=== PATIENT | male | born 1935 | race Two or more races ===

== ENCOUNTER 2016-08-14 14:49 | Emergency (ER) | payer MEDICARE, MEDICAID ==
[~2016-08-14] VITALS: Ht 172.7 cm; Wt 59.0 kg
[~2016-08-14 14:49] MED LIST: ALPR0.5T; ASPI-605; CLOP75TA2; HYDR1TAB; METO-304; PREG75CA; WARF4TAB41
[2016-08-14] MEDS ORDERED: MORPHINE SULFATE INJ 4 MG/ML DISP.SYRIN ONE (15:35)
[2016-08-14] MEDS ORDERED: MORPHINE SULFATE INJ 2 MG/ML DISP.SYRIN IM ONE (16:00)
[2016-08-14 16:17] VITALS: BP 149/81
== END 2016-08-14 16:17 | disposition home or self-care (01) ==
LOC: ER 14:50
DX: M25.551 Pain in right hip (principal); M25.562 Pain in left knee; F32.9 Major depressive disorder, single episode, unspecified; G89.29 Other chronic pain; K21.9 Gastro-esophageal reflux disease without esophagitis; F41.9 Anxiety disorder, unspecified; I11.9 Hypertensive heart disease without heart failure; Z95.0 Presence of cardiac pacemaker; Z79.82 Long term (current) use of aspirin
CPT/HCPCS: A4606; J2270; Z7610

== ENCOUNTER 2017-04-27 06:45 | Inpatient (IN) | payer MEDICARE, MEDICAID ==
[~2017-04-27 06:45] MED LIST changes: -PREG75CA; +PREG75CA PO
--- NOTE | 2017-04-27 07:20 | NUR ---
MS RN OPENING NOTE PATIENT IS ALERT AND ORIENTED x4. NO PAIN AT THIS TIME. NO SOB OR DISTRESS NOTED. CALL LIGHT WITHIN REACH. SAFETY MEASURES IMPLEMENTED. ABLE TO COMMUNICATE NEEDS. PATIENT ADMITTED FOR MALFUNCTION OF PACEMAKER. DAY SURGERY. ALL VITALS WITHIN NORMAL LIMITS. ALL BELONGINGS AT BEDSIDE. PATIENT HAS UPPER DENTURES AND EYE GLASSES. WILL CONTINUE TO MONITOR
[2017-04-27] MEDS ORDERED: HYDR-3326 PO (07:47)
[2017-04-27] MEDS ORDERED: LEVO50TA8 PO (07:47)
[2017-04-27] MEDS ORDERED: DULO30CA2 PO (07:47)
[2017-04-27] MEDS ORDERED: TRAZ-144 PO (07:47)
[2017-04-27] MEDS ORDERED: CARV6.252 PO (07:47)
[2017-04-27] MEDS ORDERED: OMEP40CA37 PO (07:47)
[2017-04-27] MEDS ORDERED: ASPI81TA2 PO (07:47)
[2017-04-27 08:35] LABS: BASOPHILS % (AUTO) 0.3 % (0.0-2.0); EOSINOPHILS # (AUTO) 0.2 /CMM (0.0-0.7); EOSINOPHILS % (AUTO) 4.1 % (0.0-6.0); HEMATOCRIT 32 % (39-51); LYMPHOCYTES # (AUTO) 1.7 /CMM (0.8-4.8); LYMPHOCYTES % (AUTO) 34.6 % (20.0-44.0); MEAN CORPUSCULAR HEMOGLOBIN 33 PG (26.0-33.0); MEAN CORPUSCULAR HGB CONC 34 g/dl (31.0-36.0); MEAN CORPUSCULAR VOLUME 96 fL (80-96); MONOCYTES # (AUTO) 0.5 /CMM (0.1-1.30); MONOCYTES % (AUTO) 10.8 % (2.0-12.0); NEUTROPHILS # (AUTO) 2.5 /CMM (1.8-8.9); NEUTROPHILS % (AUTO) 50.2 % (43.0-81.0); PLATELET COUNT (AUTO) 154 /CMM (150-450); RDW COEFFICIENT OF VARIATION 14.5 (11.5-15.0); RED BLOOD CELL COUNT(AUTO) 3.35 MIL/uL (4.5-6.0); WHITE BLOOD COUNT (AUTO) 5.1 K/uL (4.3-11.0)
--- NOTE | 2017-04-27 08:45 | NUR ---
MS RN NOTE PATIENT HEADING DOWN TO SURGERY. VITALS ARE STABLE.
[2017-04-27 08:53] LABS: ALANINE AMINOTRANSFERASE 43 U/L (12-78); ALKALINE PHOSPHATASE 98 U/L (46-116); ASPARTATE AMINOTRANSFERASE 44 U/L (15-37); BILIRUBIN,TOTAL 0.3 mg/dL (0.2-1.0); CALCIUM, SERUM 8.6 mg/dL (8.5-10.1); CARBON DIOXIDE 23 mmol/L (21-32); CHLORIDE 112 mmol/L (98-107); CREATININE 1.1 mg/dL (0.6-1.3); GLUCOSE 94 mg/dL (74-106); INR 1.06 (0.87-1.13); POTASSIUM 3.7 mmol/L (3.5-5.1); SODIUM SERUM 143 mmol/L (136-145); TOTAL PROTEIN, SERUM 5.7 g/dL (6.4-8.2); UREA NITROGEN, BLOOD 31 mg/dL (7-18)
--- NOTE | 2017-04-27 11:00 | NUR ---
MS RN NOTE PATIENT IS BACK FROM SURGERY. VITALS ARE STABLE. NO PAIN AT THIS TIME. NO SOB OR DISTRESS NOTED. MD ORDERS RECEIVED ALL ORDERS NOTED AND CARRIED OUT. WILL CONTINUE TO MONITOR
--- NOTE | 2017-04-27 14:10 | NUR ---
MS CATEGORY DEVELOPMENT MANAGER NOTE PATIENT IS ALERT AND ORIENTED x4. NO PAIN AT THIS TIME. NO SOB OR DISTRESS NOTED. CALL LIGHT WITHIN REACH AT ALL TIMES. SAFETY MEASURES IMPLEMENTED. PATIENT HAD ICD CHANGE THIS MORNING. VITALS ARE STABLE. PATIENT IS URINATING WELL WITHOUT COMPLICATIONS. IV REMOVED, SKIN INTACT. ALL BELONGINGS WITH PATIENT, ALL DISCHARGE INSTRUCTIONS GIVEN TO PATIENT, ABLE TO READ BACK INSTRUCTIONS. PATIENT TO FOLLOW UP WITH DR. ALFRED IN 10 DAYS. ASKED PATIENT IF HE WOULD LIKE TO SCHEDULE APPT FOR HIM AND PATIENT STATED "NO ITS OKAY THANK YOU I WILL CALL HIM FOR AN APPT MYSELF". LEFT VIA PRIVATE CAR WITH FRIEND.
== END 2017-04-27 14:15 | disposition home or self-care (01) | DRG 245 ==
LOC: DS 06:45 → MED 06:49
PROVIDERS: ADMIT Internal Medicine Interventional Cardiology; ATTEND Internal Medicine Interventional Cardiology
PROC: 0JH609Z Insertion of Cardiac Resynchronization Defibrillator Pulse Generator into Chest Subcutaneous Tissue and Fascia, Open Approach (ICD-10-PCS; 2017-04-27)
PROC: 0JPT0PZ Removal of Cardiac Rhythm Related Device from Trunk Subcutaneous Tissue and Fascia, Open Approach (ICD-10-PCS; principal; 2017-04-27 09:30)
DX: Z45.018 Encounter for adjustment and management of other part of cardiac pacemaker (principal); I42.9 Cardiomyopathy, unspecified; E03.9 Hypothyroidism, unspecified
CPT/HCPCS: 36415; 71010-TC; 80053-TC; 85025-TC; 85610-TC; J2250; J2704; J3010; J3490; Z7610

== ENCOUNTER 2017-06-07 19:19 | Emergency (ER) | payer MEDICARE, MEDICAID ==
[~2017-06-07] VITALS: Ht 170.2 cm; Wt 59.0 kg
[~2017-06-07 19:19] MED LIST changes: -ALPR0.5T; -ASPI-605; +ASPI81TA2 PO; +CARV6.252 PO; -CLOP75TA2; +DULO30CA2 PO; +HYDR-3326 PO; -HYDR1TAB; +LEVO50TA8 PO; -METO-304; +OMEP40CA37 PO; +TRAZ-144 PO; -WARF4TAB41
--- NOTE | 2017-06-07 19:33 | NUR ---
pt to er bed 09. c/o r shoulder pain w/ sob for a couple of days. pt is refusing to answer questions. rude to staff. insisting on getting iv morphine. stable vitals. awaiting md gomes.
--- NOTE | 2017-06-07 19:52 | NUR ---
dr ruiz at bedside for eval.
[2017-06-07] MEDS ORDERED: HYDROMORPHONE INJ 2 MG/ML DISP.SYRIN ONE (19:55)
[2017-06-07] MEDS ORDERED: HYDROMORPHONE 1 MG/1 ML DISP.SYRIN IM ONE (20:00)
--- NOTE | 2017-06-07 20:01 | NUR ---
medicated as ordered.
--- NOTE | 2017-06-07 20:15 | NUR ---
Patient discharged to home in stable condition. Written and verbal after care instructions given. Patient verbalizes understanding of instruction.
[2017-06-07 20:17] VITALS: BP 115/60
== END 2017-06-07 20:20 | disposition home or self-care (01) ==
LOC: ER 19:20
DX: G89.29 Other chronic pain (principal); M25.512 Pain in left shoulder; I10 Essential (primary) hypertension; Z95.0 Presence of cardiac pacemaker; Z96.641 Presence of right artificial hip joint; Z96.653 Presence of artificial knee joint, bilateral; Z79.82 Long term (current) use of aspirin
CPT/HCPCS: 96372; 99283; A4606; J1170; Z7610

== ENCOUNTER 2018-02-05 14:09 | Inpatient (IN) | payer MEDICARE, MEDICAID ==
[~2018-02-05] VITALS: Ht 167.6 cm; Wt 64.4 kg
[~2018-02-05 14:09] MED LIST changes: +ASPI-1169 PO; -ASPI81TA2 PO; -HYDR-3326 PO; +HYDR-3974 PO; -TRAZ-144 PO; +TRAZ-182 PO
--- NOTE | 2018-02-05 14:30 | NUR ---
PT TO ER BED 17. WAS SENT BY DR ALFRED FOR DORISAL. PRESENTS W/ BILAT LOWER EXTREMITY EDEMA. PT STATES GOING ON X 2 WEEKS. DENIES CP. GOWNED AND PLACED ON MONITOR. VSS. AWAITING MD CARREON.
--- NOTE | 2018-02-05 14:46 | NUR ---
DR Sheppard AT BEDSIDE FOR EVAL.
[2018-02-05 15:06] LABS: BASOPHILS % (AUTO) 0.8 % (0.0-2.0); EOSINOPHILS % (AUTO) 5.8 % (0.0-6.0); HEMATOCRIT 29 % (39-51); HEMOGLOBIN 10.4 g/dL (13.5-17.5); LYMPHOCYTES # (AUTO) 1.3 /CMM (0.8-4.8); LYMPHOCYTES % (AUTO) 26.2 % (20.0-44.0); MEAN CORPUSCULAR HEMOGLOBIN 35 PG (26.0-33.0); MEAN CORPUSCULAR HGB CONC 36 g/dl (31.0-36.0); MEAN CORPUSCULAR VOLUME 100 fL (80-96); MONOCYTES # (AUTO) 0.4 /CMM (0.1-1.30); MONOCYTES % (AUTO) 7.6 % (2.0-12.0); NEUTROPHILS # (AUTO) 3.1 /CMM (1.8-8.9); NEUTROPHILS % (AUTO) 59.6 % (43.0-81.0); PLATELET COUNT (AUTO) 109 /CMM (150-450); RDW COEFFICIENT OF VARIATION 13.8 (11.5-15.0); RED BLOOD CELL COUNT(AUTO) 2.93 MIL/uL (4.5-6.0); WHITE BLOOD COUNT (AUTO) 5.1 K/uL (4.3-11.0)
[2018-02-05 15:16] LABS: CALCIUM, SERUM 8.1 mg/dL (8.5-10.1); CARBON DIOXIDE 24 mmol/L (21-32); CHLORIDE 109 mmol/L (98-107); CREATININE 1.3 mg/dL (0.6-1.3); GLUCOSE 93 mg/dL (74-106); POTASSIUM 3.7 mmol/L (3.5-5.1); SODIUM SERUM 139 mmol/L (136-145); UREA NITROGEN, BLOOD 25 mg/dL (7-18)
[2018-02-05 15:42] LABS: ALANINE AMINOTRANSFERASE 24 U/L (12-78); ALBUMIN 2.5 g/dL (3.4-5.0); ALKALINE PHOSPHATASE 94 U/L (46-116); ASPARTATE AMINOTRANSFERASE 44 U/L (15-37); B-TYPE NATRIURETIC PEPTIDE 921 PG/ML (0-125); BILIRUBIN,DIRECT 0.1 mg/dL (0.0-0.2); BILIRUBIN,TOTAL 0.5 mg/dL (0.2-1.0); TOTAL PROTEIN, SERUM 6.2 g/dL (6.4-8.2)
[2018-02-05 15:44] LABS: TROPONIN I < 0.017 ng/mL (0.00-0.056)
--- NOTE | 2018-02-05 16:08 | NUR ---
U/S TECH AT BEDSIDE FOR DUPLEX ULTRASOUND.
[2018-02-05] MEDS ORDERED: METO5TAB7 PO (18:17)
[2018-02-05] MEDS ORDERED: LEVO25TA9 PO (18:17)
[2018-02-05] MEDS ORDERED: FERR325T23 PO (18:17)
[2018-02-05] MEDS ORDERED: GABA-534 PO (18:17)
[2018-02-05] MEDS ORDERED: BUME1TAB4 PO (18:17)
[2018-02-05] MEDS ORDERED: HYDR25TA4 PO (18:17)
[2018-02-05] MEDS ORDERED: POTA20TA83 PO (18:17)
[2018-02-05] MEDS ORDERED: ACETAMINOPHEN 325 MG TABLET PO PRN (19:00)
[2018-02-05] MEDS ORDERED: HYDROCODONE/APAP 5/325MG 1 EACH TABLET PO PRN (19:00)
[2018-02-05] MEDS ORDERED: Z GUARD REMEDY 2 OZ OINT TP PRN (19:00)
[2018-02-05] MEDS ORDERED: POTASSIUM CHLORIDE 20 MEQ TAB.PRT.SR PO ONE (19:00)
[2018-02-05] MEDS ORDERED: ZOLPIDEM TARTRATE 5 MG TABLET PO PRN (19:00)
[2018-02-05] MEDS ORDERED: ONDANSETRON HCL/PF 4 MG/2 ML VIAL IVP PRN (19:00)
[2018-02-05] MEDS ORDERED: BUMETANIDE INJ 8 MG in IV NS 0.9% 48 ML IV ONE (19:30)
--- NOTE | 2018-02-05 19:36 | NUR ---
REPORT GIVEN TO OSMAR PARSON. PT AWAITING TRANSFER TO FLOOR.
[2018-02-05 20:00] VITALS: BP 128/68
--- NOTE | 2018-02-05 20:07 | NUR ---
RN NOTE RECEIVED PATIENT FROM ER VIA TACO, DX ACUTE SYSTOLIC HF, ALERT/ORIENTED X 4, ABLE TO AMBULATE, STEADY GAIT, PACEMAKER ON LEFT CHEST WALL NOTED, LEFT HAND 18 GAUGE, NO S/S OF INFECTION/INFILTRATION NOTED, NOTIFIED NANCI EQUIPMENT MAINTENANCE SUPERINTENDENT REGARDING US OF LOWER EXTREMITY RESULTS, NANCI EQUIPMENT MAINTENANCE SUPERINTENDENT PUT NEW ORDER, NEW ORDER WAS CARRIED OUT, ROOM AIR, NO DISTRESS NOTED, ALL SAFETY MEASURES TAKEN, BED IN THE LOWEST POSITION, CALL LIGHT WITHIN REACH, BELONGINGS WITHIN REACH, REFUSED BED ALARM, EXPLAINED ALL RISKS AND BENEFITS, STILL REFUSED, WILL CONTINUE TO MONITOR
[2018-02-05] MEDS: ENOXAPARIN SODIUM 60 MG/0.6 ML DISP.SYRIN SQ SCH (21:11)
[2018-02-05] MEDS ORDERED: TRAZODONE 50 MG TABLET PO SCH (22:00)
[2018-02-05] MEDS: TRAZODONE 50 MG TABLET PO SCH (22:30)
[2018-02-06] VITALS: BP 128/64
[2018-02-06 04:00] VITALS: BP 135/66
[2018-02-06 06:36] LABS: BASOPHILS % (AUTO) 0.4 % (0.0-2.0); EOSINOPHILS % (AUTO) 7.8 % (0.0-6.0); HEMATOCRIT 36 % (39-51); HEMOGLOBIN 11.9 g/dL (13.5-17.5); LYMPHOCYTES # (AUTO) 1.3 /CMM (0.8-4.8); LYMPHOCYTES % (AUTO) 27.7 % (20.0-44.0); MEAN CORPUSCULAR HEMOGLOBIN 35 PG (26.0-33.0); MEAN CORPUSCULAR HGB CONC 33 g/dl (31.0-36.0); MEAN CORPUSCULAR VOLUME 104 fL (80-96); MONOCYTES # (AUTO) 0.5 /CMM (0.1-1.30); MONOCYTES % (AUTO) 9.8 % (2.0-12.0); NEUTROPHILS # (AUTO) 2.6 /CMM (1.8-8.9); NEUTROPHILS % (AUTO) 54.3 % (43.0-81.0); PLATELET COUNT (AUTO) 137 /CMM (150-450); RDW COEFFICIENT OF VARIATION 14.4 (11.5-15.0); RED BLOOD CELL COUNT(AUTO) 3.44 MIL/uL (4.5-6.0); WHITE BLOOD COUNT (AUTO) 4.8 K/uL (4.3-11.0)
--- NOTE | 2018-02-06 06:37 | NUR ---
RN NOTE PATIENT RESTED WELL AT NIGHT, NO PAIN OR DISCOMFORT NOTED, PATIENT IS STABLE, ALL SAFETY MEASURES TAKEN, WILL ENDORSE TO AM SHIFT FOR WILIAN
[2018-02-06 06:46] LABS: ALANINE AMINOTRANSFERASE 24 U/L (12-78); ALBUMIN 2.7 g/dL (3.4-5.0); ALKALINE PHOSPHATASE 90 U/L (46-116); ASPARTATE AMINOTRANSFERASE 42 U/L (15-37); BILIRUBIN,TOTAL 0.7 mg/dL (0.2-1.0); CALCIUM, SERUM 8.3 mg/dL (8.5-10.1); CARBON DIOXIDE 26 mmol/L (21-32); CHLORIDE 105 mmol/L (98-107); CREATININE 1.3 mg/dL (0.6-1.3); GLUCOSE 89 mg/dL (74-106); MAGNESIUM 1.9 mg/dL (1.8-2.4); PHOSPHORUS 3.4 mg/dL (2.5-4.9); POTASSIUM 3.8 mmol/L (3.5-5.1); SODIUM SERUM 140 mmol/L (136-145); TOTAL PROTEIN, SERUM 6.7 g/dL (6.4-8.2); UREA NITROGEN, BLOOD 22 mg/dL (7-18)
[2018-02-06 06:54] LABS: CHOLESTEROL 146 mg/dL (<200); HDL CHOLESTEROL 53 mg/dL (40-60); LDL 84 mg/dL (0-99); THYROID STIMULATING HORMONE 5.946 uIU/mL (0.358-3.74); TRIGLYCERIDES 47 mg/dL (30-150)
--- NOTE | 2018-02-06 07:30 | NUR ---
INITIAL NOTES: RECEIVED PATIENT IN BED ALERT AND ORIENTED X 4 WITH, DX OF ACUTE SYSTOLIC HF, ABLE TO AMBULATE, STEADY GAIT REPORTED BY CHRISTIAN COUNSELOR RN. PT HAS PACEMAKER ON LEFT CHEST WALL NOTED, LEFT HAND 18 GAUGE, NO S/S OF INFECTION/INFILTRATION NOTED. US OF LOWER EXTREMITY RESULTS. PT LOWER EXTREMITIES +3 PITTING EDEMA BILATERALLY. SAFETY MEASURES INSTITUTED INCLUDING BED IN THE LOWEST POSITION AND LOCKED CALL LIGHT WITHIN REACH WILL CONTINUE TO MONITOR
[2018-02-06 08:00] VITALS: BP_SYST 120; BP_SYST 146; BP_DIAS 59; BP_DIAS 85
[2018-02-06] MEDS: FERROUS SULFATE (325 MG) 325 MG/TAB TABLET PO SCH (08:40)
[2018-02-06] MEDS: LEVOTHYROXINE SODIUM 25 MCG TABLET PO SCH (08:40)
[2018-02-06] MEDS: GABAPENTIN 300 MG CAPSULE PO SCH ×2 (08:42→16:54)
[2018-02-06] MEDS: PANTOPRAZOLE 40 MG TABLET.DR PO SCH (08:46)
[2018-02-06] MEDS: CARVEDILOL 6.25 MG TABLET PO SCH ×2 (08:47→21:00)
[2018-02-06] MEDS: ENOXAPARIN SODIUM 60 MG/0.6 ML DISP.SYRIN SQ SCH (08:50)
[2018-02-06] MEDS ORDERED: METOLAZONE 2.5 MG TABLET PO SCH (09:00)
[2018-02-06] MEDS ORDERED: ASPIRIN 81 MG TAB.CHEW PO SCH (09:00)
[2018-02-06] MEDS ORDERED: HYDROCHLOROTHIAZIDE 25 MG TABLET PO SCH (09:00)
[2018-02-06] MEDS ORDERED: APIXABAN 2.5 MG TABLET PO SCH (09:00)
[2018-02-06] MEDS ORDERED: POTASSIUM CHLORIDE 20 MEQ TAB.PRT.SR PO SCH (09:00)
[2018-02-06] MEDS: POTASSIUM CHLORIDE 20 MEQ TAB.PRT.SR PO SCH ×3 (10:41→13:19)
--- NOTE | 2018-02-06 10:42 | NUR ---
WOUND CARE CONSULT: PT REFUSED TO HAVE RT HAND DRESSING REMOVED. DRESSING IS DRY AND INTACT. PT STATES HAD INJURY SUTURED 5 DAYS AGO. RECOMMEND MD FOLLOWUP. PT INDEPENDENT WITH BED MOBILITY AND CONTINENT. WILL SEE PRN.
[2018-02-06] MEDS ORDERED: BUMETANIDE INJ 8 MG in IV NS 0.9% 48 ML IV ONE (11:00)
[2018-02-06 12:00] VITALS: BP 108/56
[2018-02-06 16:00] VITALS: BP 100/70
--- NOTE | 2018-02-06 18:38 | NUR ---
CLOSING: PT WAS TOLD THIS AM BY MD ALFRED THAT PT COULD WALK WITH WALKER. PT HAS DVT IN RIGHT LEG. NO ORDERS OR NOTIFICATION IN NOTE OBTAINED FOR WALKING. PT WAS EDUCATED ABOUT DVT CONSEQUENCES AND THAT BEDREST IS CORRECT PROTOCOL TO USE. PT UP TO BATH ROOM X 3 GOOD RESPONSE TO DIURETICS. 2700 OUTPUT. PT BREATHING EASY EVEN WITH WALKING UP TO BATH ROOM AND BACK. PT REFUSED TO USE BED GUAMAN OR COMMODE EVEN THOUGH COMMODE AT BEDSIDE. WILL ENDORSE CARE TO BASIN FINISH OPERATOR TIG WELDER RN.
[2018-02-06 20:00] VITALS: BP 100/70
[2018-02-06] MEDS: TRAZODONE 50 MG TABLET PO SCH (21:44)
[2018-02-06] MEDS: RIVAROXABAN 15 MG TABLET PO SCH (21:45)
[2018-02-07 04:00] VITALS: BP 98/46
[2018-02-07 06:12] LABS: BASOPHILS % (AUTO) 0.5 % (0.0-2.0); EOSINOPHILS % (AUTO) 5.1 % (0.0-6.0); HEMATOCRIT 31 % (39-51); HEMOGLOBIN 10.6 g/dL (13.5-17.5); LYMPHOCYTES # (AUTO) 1.4 /CMM (0.8-4.8); LYMPHOCYTES % (AUTO) 31.1 % (20.0-44.0); MEAN CORPUSCULAR HEMOGLOBIN 35 PG (26.0-33.0); MEAN CORPUSCULAR HGB CONC 34 g/dl (31.0-36.0); MEAN CORPUSCULAR VOLUME 103 fL (80-96); MONOCYTES # (AUTO) 0.4 /CMM (0.1-1.30); MONOCYTES % (AUTO) 9.3 % (2.0-12.0); NEUTROPHILS # (AUTO) 2.4 /CMM (1.8-8.9); PLATELET COUNT (AUTO) 120 /CMM (150-450); RDW COEFFICIENT OF VARIATION 14.5 (11.5-15.0); RED BLOOD CELL COUNT(AUTO) 3.01 MIL/uL (4.5-6.0); WHITE BLOOD COUNT (AUTO) 4.4 K/uL (4.3-11.0)
[2018-02-07 06:47] LABS: ALANINE AMINOTRANSFERASE 18 U/L (12-78); ALBUMIN 2.2 g/dL (3.4-5.0); ALKALINE PHOSPHATASE 82 U/L (46-116); ASPARTATE AMINOTRANSFERASE 33 U/L (15-37); BILIRUBIN,TOTAL 0.3 mg/dL (0.2-1.0); CARBON DIOXIDE 29 mmol/L (21-32); CHLORIDE 104 mmol/L (98-107); CREATININE 1.6 mg/dL (0.6-1.3); GLUCOSE 103 mg/dL (74-106); MAGNESIUM 1.8 mg/dL (1.8-2.4); PHOSPHORUS 4.1 mg/dL (2.5-4.9); SODIUM SERUM 138 mmol/L (136-145); TOTAL PROTEIN, SERUM 5.9 g/dL (6.4-8.2); UREA NITROGEN, BLOOD 28 mg/dL (7-18)
--- NOTE | 2018-02-07 07:20 | NUR ---
RN NOTES PT IS SITTING UP IN BED, AWAKE AND RESTING COMFORTABLY. PT ON ROOM AIR, RESPIRATIONS ARE EVEN AND UNLABORED. IV ON LFA INTACT AND SALINE LOCKED. NO SIGNS OF DISTRESS NOTED. SAFETY MEASURES ARE IN PLACE, CALL LIGHT IS IN REACH. WILL CONTINUE TO MONITOR.
--- NOTE | 2018-02-07 07:45 | NUR ---
WOUND CARE: SECOND ATTEMPT TO SEE RIGHT HAND FOR SKIN ASSESSMENT. PATIENT REFUSED TO HAVE HAND DRESSING REMOVED. WILL SEE PATIENT PATIENT CONDITION PERMITS.
[2018-02-07 08:00] VITALS: BP 102/47
--- NOTE | 2018-02-07 08:12 | NUR ---
WOUND CARE: PT ALLOWED ASSESSMENT OF RT HAND SUTURED WOUND. NO SIGN OF INFECTION NOTED. NO DRAINAGE NOTED. RECOMMEND CONTINUE PRESENT TREATMENT. DISCUSSED WITH NURSING STAFF. PT HAS VERY FRAGILE SKIN. WILL SEE PRLaurence PARHAM IN AGREEMENT WITH PLAN OF CARE.
[2018-02-07] MEDS: GABAPENTIN 300 MG CAPSULE PO SCH (08:17)
[2018-02-07] MEDS: FERROUS SULFATE (325 MG) 325 MG/TAB TABLET PO SCH (08:17)
[2018-02-07] MEDS: LEVOTHYROXINE SODIUM 25 MCG TABLET PO SCH (08:17)
[2018-02-07] MEDS: PANTOPRAZOLE 40 MG TABLET.DR PO SCH (08:17)
[2018-02-07] MEDS: RIVAROXABAN 15 MG TABLET PO SCH (08:20)
[2018-02-07 08:21] VITALS: BP 102/47
[2018-02-07] MEDS: CARVEDILOL 6.25 MG TABLET PO SCH (08:21)
[2018-02-07] MEDS ORDERED: SPIRONOLACTONE 25 MG TABLET PO SCH (09:00)
--- NOTE | 2018-02-07 16:00 | NUR ---
RN NOTES PT WAS DISCHARGED HOME IN STABLE CONDITION. IV AND ID BAND WERE REMOVED. WOUND DOCUMENTATION PHOTO TAKEN. PT GIVEN DISCHARGE INSTRUCTIONS AND WAS TOLD TO FOLLOW UP WITH PCP WITHIN 1-2 WEEKS OF DISCHARGE. PT STATED HE HAD APPOINTMENT WITH DR. ALFRED ON MONDAY. PT WAS GIVEN NEW PRESCRIPTION TO HAVE FILLED AT HIS PHARMACY AND TO CONTINUE WITH HIS OTHER MEDICATIONS. PT VERBALIZED UNDERSTANDING. BELONGINGS WERE RETURNED TO PT AND DISCHARGE PAPERS WERE SIGNED. PT WAS BROUGHT OUT TO LOBBY IN A WHEELCHAIR, ACCOMPANIED BY SIGNIFICANT OTHER AND HOUSEKEEPING/LAUNDRY.
== END 2018-02-07 16:00 | disposition home or self-care (01) | DRG 291 ==
LOC: ER 14:10 → TELE1 18:33 → MEDSG1 02-06 17:59
PROVIDERS: ADMIT Nurse Practitioner Acute Care; ATTEND Nurse Practitioner Acute Care
DX: I11.0 Hypertensive heart disease with heart failure (principal); N17.0 Acute kidney failure with tubular necrosis; I82.411 Acute embolism and thrombosis of right femoral vein; I50.43 Acute on chronic combined systolic (congestive) and diastolic (congestive) heart failure; I25.10 Atherosclerotic heart disease of native coronary artery without angina pectoris; D69.6 Thrombocytopenia, unspecified; G89.4 Chronic pain syndrome; Z95.810 Presence of automatic (implantable) cardiac defibrillator; Z96.641 Presence of right artificial hip joint; Z96.653 Presence of artificial knee joint, bilateral; D53.9 Nutritional anemia, unspecified; S61.411D Laceration without foreign body of right hand, subsequent encounter
CPT/HCPCS: 36415; 71045-TC; 80048-TC; 80053-TC; 80061-TC; 80076-TC; 83735-TC; 83880; 84100-TC; 84439-TC; 84443-TC; 84484-TC; 85025-TC; 87081-TC; 93307-TC; 93970-TC; A4216; A4606; A6402; J1650; J3490; J7030; J7040; Z7610

== ENCOUNTER 2018-07-02 17:08 | Inpatient (IN) | payer MEDICARE, MEDICAID ==
[~2018-07-02] VITALS: Ht 170.2 cm; Wt 59.9 kg
[~2018-07-02 17:08] MED LIST changes: +BUME1TAB4 PO; -DULO30CA2 PO; +FERR325T23 PO; +GABA-534 PO; -HYDR-3974 PO; +HYDR25TA4 PO; +LEVO25TA9 PO; -LEVO50TA8 PO; +METO5TAB7 PO; +POTA20TA83 PO; -PREG75CA PO
--- NOTE | 2018-07-02 17:15 | NUR ---
PT BIB SON SENT BY PMD FOR ABNORMAL LABS: HGB=7.4 AND PT C/O GENERALIZED WEAKNESS. PT ON MONITOR IN BED 13. WILL CONTINUE TO MONITOR.
[2018-07-02] MEDS ORDERED: IV NS 0.9% 1,000 ML BAG IV ONE (18:00)
[2018-07-02 18:07] LABS: BASOPHILS # (AUTO) 0.1 /CMM (0.0-0.2); EOSINOPHILS % (AUTO) 4.3 % (0.0-6.0); MONOCYTES # (AUTO) 0.6 /CMM (0.1-1.30); NEUTROPHILS # (AUTO) 3.2 /CMM (1.8-8.9); WHITE BLOOD COUNT (AUTO) 5.7 K/uL (4.3-11.0)
[2018-07-02] MEDS ORDERED: HYDR-3026 PO (18:14)
[2018-07-02] MEDS ORDERED: OMEP20CA10 PO (18:14)
[2018-07-02 18:15] LABS: BASOPHILS % (AUTO) 1.2 % (0.0-2.0); HEMATOCRIT 21 % (39-51); LYMPHOCYTES # (AUTO) 1.6 /CMM (0.8-4.8); LYMPHOCYTES % (AUTO) 27.9 % (20.0-44.0); MEAN CORPUSCULAR HGB CONC 32 g/dl (31.0-36.0); MEAN CORPUSCULAR VOLUME 92 fL (80-96); MONOCYTES % (AUTO) 11.3 % (2.0-12.0); NEUTROPHILS % (AUTO) 55.3 % (43.0-81.0); PLATELET COUNT (AUTO) 168 /CMM (150-450); RED BLOOD CELL COUNT(AUTO) 2.29 MIL/uL (4.5-6.0)
[2018-07-02 18:16] LABS: HEMOGLOBIN 6.7 g/dL (13.5-17.5)
[2018-07-02 18:19] LABS: CALCIUM, SERUM 7.9 mg/dL (8.5-10.1); CARBON DIOXIDE 20 mmol/L (21-32); CHLORIDE 114 mmol/L (98-107); CREATININE 1.6 mg/dL (0.6-1.3); GLUCOSE 112 mg/dL (74-106); POTASSIUM 3.8 mmol/L (3.5-5.1); SODIUM SERUM 145 mmol/L (136-145); UREA NITROGEN, BLOOD 34 mg/dL (7-18)
[2018-07-02 18:24] LABS: ALANINE AMINOTRANSFERASE 13 U/L (12-78); ALBUMIN 2.6 g/dL (3.4-5.0); ALKALINE PHOSPHATASE 71 U/L (46-116); ASPARTATE AMINOTRANSFERASE 22 U/L (15-37); BILIRUBIN,DIRECT 0.1 mg/dL (0.0-0.2); BILIRUBIN,TOTAL 0.2 mg/dL (0.2-1.0)
[2018-07-02 18:25] LABS: OCCULT BLOOD STOOL NEGATIVE (NEGATIVE)
[2018-07-02 18:41] LABS: EOSINOPHILS % (MANUAL) 1 % (0-4); LYMPHOCYTES % (MANUAL) 4 % (16-48); MONOCYTES % (MANUAL) 4 % (0-11.0); NEUTROPHILS % (MANUAL) 91 (42-76)
[2018-07-02] MEDS ORDERED: ACETAMINOPHEN ES 500 MG TABLET ONE (19:00)
[2018-07-02] MEDS ORDERED: ACETAMINOPHEN ES 500 MG TABLET PO ONE (19:00)
--- NOTE | 2018-07-02 19:11 | NUR ---
REPORT RECEIVED FROM MARI PARSON FOR WILIAN. RECEIVED CALL FROM BLOOD BANK THAT PRBC IS READY. RESTING QUIETLY, NAD NOTED.
--- NOTE | 2018-07-02 19:45 | NUR ---
1UNIT PRBC TRANSFUSION INITIATED THROUGH RFA 20G AT 100ML/HR, WITNESSED BY KAROLINA PARSON. VSS.
[2018-07-02] MEDS ORDERED: MAG HYDROX/AL HYDROX/SIMETH 30 ML UDC PO PRN (20:00)
[2018-07-02] MEDS ORDERED: MAGNESIUM HYDROXIDE 30 ML UDC PO PRN (20:00)
[2018-07-02] MEDS ORDERED: ONDANSETRON HCL/PF 4 MG/2 ML VIAL IVP PRN (20:00)
[2018-07-02] MEDS ORDERED: ACETAMINOPHEN 325 MG TABLET PO PRN (20:00)
[2018-07-02] MEDS ORDERED: HYDROCODONE/APAP 5/325MG 1 EACH TABLET PO PRN (20:00)
[2018-07-02] MEDS ORDERED: Z GUARD REMEDY 2 OZ OINT TP PRN (20:00)
--- NOTE | 2018-07-02 20:00 | NUR ---
TOLERATING TRANSFUSION WELL, NO COMPLAINTS OR CHANGES. VSS. RATE INCREASED TO 150ML/HR.
--- NOTE | 2018-07-02 20:24 | NUR ---
PT IS ASSIGNED TO TELE RM#: [id number], DX: SEVERE ANEMIA/GI BLEED, AND ACCEPTING: [facility] JUAN
--- NOTE | 2018-07-02 20:58 | NUR ---
REPORT GIVEN TO GARRY PARSON FOR ADMISSION TO [facility]
[2018-07-02] MEDS ORDERED: hydrOXYzine PAMOATE 25 MG CAPSULE PO PRN (21:00)
[2018-07-02 21:14] VITALS: BP 133/56
[2018-07-02 21:20] VITALS: BP 133/56
--- NOTE | 2018-07-02 21:20 | NUR ---
TD RN NOTES RECEIVED FROM ER NURSE. VIA TACO ON ROOM AIR NO RESPIRATORY DISTRESS NOTED. ON TELE MONITOR AND WITH PACEMAKER A-V PACING HR OF 65. IV ACCESS OF RFA G20 WITH BLOOD RUNNING @ 150CC/HR. V/S CHECKED. SKIN ASSESSMENT DONE. BELONGING LIST CHECKED. BED ALARM ON. OFFERED WALKER. SIDE RAILS UP. CALL LIGHT WITHIN REACH. WILL CONTINUE TO MONITOR PT CLOSELY.
[2018-07-02] MEDS: TRAZODONE 50 MG TABLET PO SCH ×2 (21:47→22:11)
[2018-07-02 21:50] VITALS: BP 129/78
[2018-07-02] MEDS: IV NS 0.9% 1,000 ML IV PRN (21:58)
--- NOTE | 2018-07-02 22:36 | NUR ---
TD RN NOTES BLOOD TRANSFUSION FINISHED @ 2150. NO ADVERSE REACTION NOTED. WILL CONTINUE TO MONITOR PT CLOSELY.
[2018-07-03] VITALS (9 sets, daily range): BP systolic 110–138; BP diastolic 49–57
[2018-07-03 02:07] LABS: EOSINOPHILS % (AUTO) 4.4 % (0.0-6.0); HEMATOCRIT 21 % (39-51); LYMPHOCYTES # (AUTO) 1.5 /CMM (0.8-4.8); LYMPHOCYTES % (AUTO) 30.6 % (20.0-44.0); MEAN CORPUSCULAR HGB CONC 33 g/dl (31.0-36.0); MEAN CORPUSCULAR VOLUME 90 fL (80-96); MONOCYTES # (AUTO) 0.5 /CMM (0.1-1.30); MONOCYTES % (AUTO) 10.4 % (2.0-12.0); NEUTROPHILS # (AUTO) 2.6 /CMM (1.8-8.9); NEUTROPHILS % (AUTO) 53.6 % (43.0-81.0); PLATELET COUNT (AUTO) 151 /CMM (150-450); RED BLOOD CELL COUNT(AUTO) 2.38 MIL/uL (4.5-6.0); WHITE BLOOD COUNT (AUTO) 4.9 K/uL (4.3-11.0)
--- NOTE | 2018-07-03 02:12 | NUR ---
TD RN NOTES CALLED AIR BAG BUFFER FOR H/H OF 02/03. AWAITING ORDERS.
--- NOTE | 2018-07-03 02:40 | NUR ---
TD RN NOTES INTERVENTIONAL RADIOLOGY TECHNOLOGIST ORDERED 1 UNIT PRBC. WILL CONTINUE TO MONITOR PT CLOSELY.
--- NOTE | 2018-07-03 06:29 | NUR ---
TD RN NOTES NO ACUTE CHANGES NOTED DURING THE SHIFT. BLOOD TRANSFUSION DONE. DUE MEDS GIVEN. NO ACTIVE BLEEDING NOTED. WILL ENDORSE TO THE AM NURSE FOR CONTINUITY OF CARE.
--- NOTE | 2018-07-03 07:00 | NUR ---
RN NOTES RECEIVED PT ON BED, A/Ox4, ON RA , RESPIRATION EVEN AND UNLABORED, ON TELE AV PACING HR IN 60'S , NS AT 75CC/HR RUNNING VIA R FA G 20 , SITE CLEAN,DRY AND INTACT, SIDE RAILS UPx3, CALL LIGHT WITHIN EASY REACH. BED ALARM ON FOR PT SAFETY, WILL CONTINUE TO MONITOR PT CLOSELY.
[2018-07-03] MEDS: HYDROCHLOROTHIAZIDE 25 MG TABLET PO SCH (08:13)
[2018-07-03] MEDS: METOLAZONE 2.5 MG TABLET PO SCH (08:13)
[2018-07-03] MEDS: LEVOTHYROXINE SODIUM 25 MCG TABLET PO SCH (08:13)
[2018-07-03] MEDS: DOCUSATE SODIUM 100 MG CAPSULE PO SCH ×2 (08:13→16:12)
[2018-07-03] MEDS: GABAPENTIN 300 MG CAPSULE PO SCH ×2 (08:13→16:11)
[2018-07-03] MEDS: POTASSIUM CHLORIDE 20 MEQ TAB.PRT.SR PO SCH (08:14)
[2018-07-03] MEDS: FERROUS SULFATE (325 MG) 325 MG/TAB TABLET PO SCH (08:14)
[2018-07-03] MEDS: PANTOPRAZOLE 40 MG VIAL IV SCH ×2 (08:14→16:10)
[2018-07-03] MEDS: BUMETANIDE (1 MG) 1 MG TABLET PO SCH (08:14)
[2018-07-03] MEDS: CARVEDILOL 6.25 MG TABLET PO SCH ×2 (08:14→16:11)
[2018-07-03] MEDS ORDERED: OMEPRAZOLE 20 MG CAPSULE.DR PO SCH (09:00)
[2018-07-03 10:12] LABS: BASOPHILS % (AUTO) 0.8 % (0.0-2.0); EOSINOPHILS % (AUTO) 4.1 % (0.0-6.0); HEMATOCRIT 27 % (39-51); HEMOGLOBIN 8.9 g/dL (13.5-17.5); LYMPHOCYTES # (AUTO) 1.7 /CMM (0.8-4.8); LYMPHOCYTES % (AUTO) 33.7 % (20.0-44.0); MEAN CORPUSCULAR HGB CONC 33 g/dl (31.0-36.0); MEAN CORPUSCULAR VOLUME 91 fL (80-96); MONOCYTES # (AUTO) 0.5 /CMM (0.1-1.30); MONOCYTES % (AUTO) 10.2 % (2.0-12.0); NEUTROPHILS # (AUTO) 2.5 /CMM (1.8-8.9); NEUTROPHILS % (AUTO) 51.2 % (43.0-81.0); PLATELET COUNT (AUTO) 179 /CMM (150-450); WHITE BLOOD COUNT (AUTO) 4.9 K/uL (4.3-11.0)
[2018-07-03 10:14] LABS: IRON, SERUM 309 ug/dl (50-175); TOTAL IRON BINDING CAPACITY 344 ug/dl (250-450)
[2018-07-03 10:16] LABS: CALCIUM, SERUM 7.5 mg/dL (8.5-10.1); CARBON DIOXIDE 19 mmol/L (21-32); CHLORIDE 114 mmol/L (98-107); CREATININE 1.3 mg/dL (0.6-1.3); GLUCOSE 96 mg/dL (74-106); MAGNESIUM 1.9 mg/dL (1.8-2.4); PHOSPHORUS 3.3 mg/dL (2.5-4.9); SODIUM SERUM 144 mmol/L (136-145); UREA NITROGEN, BLOOD 27 mg/dL (7-18)
[2018-07-03 11:55] LABS: CHOLESTEROL 108 mg/dL (<200); HDL CHOLESTEROL 61 mg/dL (40-60); LDL 54 mg/dL (0-99); THYROID STIMULATING HORMONE 6.844 uIU/mL (0.358-3.74); TRIGLYCERIDES 26 mg/dL (30-150)
--- NOTE | 2018-07-03 12:00 | NUR ---
RN NOTES CONSENT OBTAINED FOR EGD IN AM .
[2018-07-03] MEDS: IV NS 0.9% 1,000 ML IV PRN (12:50)
[2018-07-03 13:23] LABS: BASOPHILS % (AUTO) 0.8 % (0.0-2.0); EOSINOPHILS % (AUTO) 4.1 % (0.0-6.0); HEMATOCRIT 29 % (39-51); HEMOGLOBIN 9.3 g/dL (13.5-17.5); LYMPHOCYTES # (AUTO) 1.8 /CMM (0.8-4.8); LYMPHOCYTES % (AUTO) 33.7 % (20.0-44.0); MEAN CORPUSCULAR HGB CONC 33 g/dl (31.0-36.0); MEAN CORPUSCULAR VOLUME 90 fL (80-96); MONOCYTES # (AUTO) 0.6 /CMM (0.1-1.30); MONOCYTES % (AUTO) 10.6 % (2.0-12.0); NEUTROPHILS # (AUTO) 2.7 /CMM (1.8-8.9); NEUTROPHILS % (AUTO) 50.8 % (43.0-81.0); PLATELET COUNT (AUTO) 175 /CMM (150-450); RED BLOOD CELL COUNT(AUTO) 3.16 MIL/uL (4.5-6.0); WHITE BLOOD COUNT (AUTO) 5.3 K/uL (4.3-11.0)
--- NOTE | 2018-07-03 18:31 | NUR ---
RN NOTES PT STABLE , NS AT 75CC/H R RUNNING VIA R FA IV SITE , SR UP X3, CALL LIGHT WITHIN EASY REACH, WILL ENDOSE TO BRICK POINTER NURSE FOR CONTINUITY OF CARE .
[2018-07-03 19:17] LABS: APPEARANCE,URINE CLEAR (CLEAR); BILIRUBIN,URINE NEGATIVE (NEGATIVE); BLOOD, URINE NEGATIVE Ery/uL (NEGATIVE); COLOR,URINE OTHER (YELLOW); KETONES,URINE NEGATIVE (NEGATIVE); LEUKOCYTE ESTERASE ,URINE NEGATIVE (NEGATIVE); NITRITE, URINE NEGATIVE (NEGATIVE); PROTEIN,URINE NEGATIVE (NEGATIVE); UGLUCOSE NEGATIVE (NEGATIVE); UROBILINOGEN,URINE 0.2 EU/dL (0.2)
[2018-07-03 19:27] LABS: CREATININE, URINE < 13.0 MG/DL (30.0-125.0); URINE SODIUM, RANDOM 138 mmol/l (40-220); URINE TOTAL PROTEIN 3.5 mg/dL (0-11.9)
--- NOTE | 2018-07-03 19:36 | NUR ---
MS RN NOTE: RECEIVED PT ON BED ALERT AND AWAKE. ABLE TO MAKE NEEDS KNOWN. NO ACUTE DISTRESS NOTED. DENIES PAIN AND DISCOMFORT AT THIS TIME. ON ROOM AIR, BREATHING EVEN AND UNLABORED WITH NORMAL RESPIRATIONS. IV ON RIGHT FOREARM #20 INTACT AND PATENT, IVF INFUSING WELL. CALL LIGHT PLACED WITHIN REACH. ENCOURAGED TO VERBALIZE NEEDS AND CONCERNS AND TO CALL FOR ASSISTANCE IF NEEDED. SAFETY AND FALL PRECAUTIONS OBSERVED AND MAINTAINED. WILL CONTINUE TO MONITOR PT.
[2018-07-03] MEDS: TRAZODONE 50 MG TABLET PO SCH (21:30)
[2018-07-04 01:55] LABS: EOSINOPHIL,URINE None Seen
[2018-07-04] MEDS: IV NS 0.9% 1,000 ML IV PRN (02:34)
[2018-07-04 04:00] VITALS: BP 149/67
--- NOTE | 2018-07-04 06:39 | NUR ---
MS RN NOTE: NO CHANGES NOTED THROUGHOUT THE SHIFT. PT KEPT NPO POST MIDNIGHT. NO COMPLAINTS OF PAIN OR DISCOMFORT AT THIS TIME. IV ON RIGHT FOREARM #20 INTACT AND PATENT, IVF INFUSING WELL. KEPT CLEAN, DRY AND COMFORTABLE. SAFETY AND FALL PRECAUTIONS OBSERVED AND MAINTAINED. CALL LIGHT PLACED WITHIN REACH. WILL ENDORSE TO DAY SHIFT RN FOR CONTINUITY OF CARE.
[2018-07-04] MEDS: LEVOTHYROXINE SODIUM 25 MCG TABLET PO SCH (07:30)
--- NOTE | 2018-07-04 07:30 | NUR ---
RN NOTE: RECEIVED PATIENT ON BED, A/OX4, ABLE TO MAKE NEEDS KNOWN. ON ROOM AIR, BREATHING EVEN AND UNLABORED, NO SIGN OF DISTRESS NOTED AT THIS TIME, NO COMPLAINS OF PAIN, PATIENT ON NPO STATUS- PATIENT AWARE, IVL ON RFA G20: INTACT AND IN PLACE, WITH NS AT 75CC/HR INFUSING WELL. PATIENT ABLE TO FOLLOW COMMANDS, SAFETY MEASURES OBSERVED AND MAINTAINED. ENCOURAGED TO VERBALIZE NEEDS AND CONCERNS AND TO CALL FOR ASSISTANCE. CALL LIGHT PLACED WITHIN REACH. WILL CONTINUE TO MONITOR PATIENT.
[2018-07-04 08:00] VITALS: BP 131/66
[2018-07-04] MEDS: BUMETANIDE (1 MG) 1 MG TABLET PO SCH (09:00)
[2018-07-04] MEDS: POTASSIUM CHLORIDE 20 MEQ TAB.PRT.SR PO SCH (09:00)
[2018-07-04] MEDS: METOLAZONE 2.5 MG TABLET PO SCH (09:00)
[2018-07-04] MEDS: CARVEDILOL 6.25 MG TABLET PO SCH ×2 (09:00→17:00)
[2018-07-04] MEDS: HYDROCHLOROTHIAZIDE 25 MG TABLET PO SCH (09:00)
[2018-07-04] MEDS: FERROUS SULFATE (325 MG) 325 MG/TAB TABLET PO SCH (09:00)
[2018-07-04] MEDS: GABAPENTIN 300 MG CAPSULE PO SCH ×2 (09:00→17:34)
[2018-07-04] MEDS: DOCUSATE SODIUM 100 MG CAPSULE PO SCH ×2 (09:00→17:34)
[2018-07-04] MEDS: PANTOPRAZOLE 40 MG VIAL IV SCH ×2 (09:12→17:34)
--- NOTE | 2018-07-04 09:20 | NUR ---
RN NOTES PATIENT TRANSFERRED OUT TO THE UNIT TO OR FOR SCHEDULED EGD ACCOMPANIED BY 2 OR NURSE. PATIENT ON STABLE CONDITION. NOT ON ANY FORM OF DISTRESS.
--- NOTE | 2018-07-04 10:10 | NUR ---
RN NOTES PATIENT BACK FROM EGD PROCEDURE, PER OR NURSE ENDORSEMENT- THERE WERE VARICES AND ESOPHAGITIS NOTED. ORDERS FROM DR. PRICE TO RESUME DIET TOLERATED AND TO RESUME MEDICATION. ORDERS NOTED AND CARRIED
[2018-07-04 12:00] VITALS: BP 131/66
[2018-07-04 16:00] VITALS: BP 122/51
[2018-07-04 20:00] VITALS: BP 112/54
--- NOTE | 2018-07-04 20:01 | NUR ---
RN NOTES ENDORSE FOR CONTINUITY OF CARE. ALL NURSING NEEDS ATTENDED AND MET. SAFETY MEASURES IN PLACE AT ALL TIME. CALL LIGHT WITHIN REACH
[2018-07-04] MEDS: TRAZODONE 50 MG TABLET PO SCH (21:30)
[2018-07-05 04:29] VITALS: BP 112/64
[2018-07-05 05:29] LABS: BASOPHILS # (AUTO) 0.1 /CMM (0.0-0.2); BASOPHILS % (AUTO) 1.3 % (0.0-2.0); EOSINOPHILS % (AUTO) 3.8 % (0.0-6.0); HEMATOCRIT 27 % (39-51); HEMOGLOBIN 8.9 g/dL (13.5-17.5); LYMPHOCYTES # (AUTO) 1.9 /CMM (0.8-4.8); LYMPHOCYTES % (AUTO) 35.9 % (20.0-44.0); MEAN CORPUSCULAR HGB CONC 33 g/dl (31.0-36.0); MEAN CORPUSCULAR VOLUME 90 fL (80-96); MONOCYTES # (AUTO) 0.5 /CMM (0.1-1.30); MONOCYTES % (AUTO) 10.2 % (2.0-12.0); NEUTROPHILS # (AUTO) 2.6 /CMM (1.8-8.9); NEUTROPHILS % (AUTO) 48.8 % (43.0-81.0); PLATELET COUNT (AUTO) 166 /CMM (150-450); WHITE BLOOD COUNT (AUTO) 5.3 K/uL (4.3-11.0)
[2018-07-05 05:52] LABS: CALCIUM, SERUM 7.6 mg/dL (8.5-10.1); CARBON DIOXIDE 20 mmol/L (21-32); CHLORIDE 111 mmol/L (98-107); CREATININE 1.4 mg/dL (0.6-1.3); GLUCOSE 105 mg/dL (74-106); SODIUM SERUM 142 mmol/L (136-145); UREA NITROGEN, BLOOD 28 mg/dL (7-18)
[2018-07-05] MEDS: LEVOTHYROXINE SODIUM 25 MCG TABLET PO SCH (06:45)
[2018-07-05 08:00] VITALS: BP_SYST 120; BP_DIAS 40; BP_DIAS 60
[2018-07-05] MEDS: PANTOPRAZOLE 40 MG VIAL IV SCH (08:45)
[2018-07-05] MEDS: METOLAZONE 2.5 MG TABLET PO SCH (08:46)
[2018-07-05] MEDS: HYDROCHLOROTHIAZIDE 25 MG TABLET PO SCH (08:49)
[2018-07-05 08:50] VITALS: BP 120/60
[2018-07-05] MEDS: BUMETANIDE (1 MG) 1 MG TABLET PO SCH (08:50)
[2018-07-05] MEDS: FERROUS SULFATE (325 MG) 325 MG/TAB TABLET PO SCH (08:50)
[2018-07-05] MEDS: CARVEDILOL 6.25 MG TABLET PO SCH (08:50)
[2018-07-05] MEDS: POTASSIUM CHLORIDE 20 MEQ TAB.PRT.SR PO SCH (08:51)
[2018-07-05] MEDS: DOCUSATE SODIUM 100 MG CAPSULE PO SCH (08:51)
[2018-07-05] MEDS: GABAPENTIN 300 MG CAPSULE PO SCH (08:53)
--- NOTE | 2018-07-05 09:00 | NUR ---
MR RN INITIAL NOTES Patient is awake, sitting up in bed. Had breakfast with good appetite. Ambulates independently with walker/standby assist. IVF not infusing, per report due to patient's refusal. Denies pain, stable on RA, no shortness of breath. Maintained safety. Patient voicing to go home today, will follow up.
[2018-07-05] MEDS ORDERED: OMEP20TA20 PO (11:03)
--- NOTE | 2018-07-05 11:56 | NUR ---
MS RN DISCHARGED Patient has been cleared home by . VSS, skin intact. Patient ambulates with walker/standby assist. IVC removed in RFA, gauze applied. Discharged instruction, prescription given to patient, instructed to follow up appointment, verbalized understanding. Belongings check and send with the patient. Patient left hosp in stable condition via private car accompanied by his friend.
== END 2018-07-05 12:00 | disposition home or self-care (01) | DRG 368 ==
LOC: ER 17:09 → TELE1 20:46 → TELE-TD 21:31 → MEDSG1 07-03 09:45
PROVIDERS: ADMIT Registered Nurse; ATTEND Nurse Practitioner Acute Care
PROC: 30233N1 Transfusion of Nonautologous Red Blood Cells into Peripheral Vein, Percutaneous Approach (ICD-10-PCS; principal; 2018-07-02)
PROC: 0DJ08ZZ Inspection of Upper Intestinal Tract, Via Natural or Artificial Opening Endoscopic (ICD-10-PCS; 2018-07-04)
DX: I85.01 Esophageal varices with bleeding (principal); N17.0 Acute kidney failure with tubular necrosis; E44.0 Moderate protein-calorie malnutrition; K76.6 Portal hypertension; E86.0 Dehydration; I11.0 Hypertensive heart disease with heart failure; I50.9 Heart failure, unspecified; E03.9 Hypothyroidism, unspecified; G62.9 Polyneuropathy, unspecified; I25.10 Atherosclerotic heart disease of native coronary artery without angina pectoris; G89.4 Chronic pain syndrome; Z95.810 Presence of automatic (implantable) cardiac defibrillator; G47.00 Insomnia, unspecified; K21.0 Gastro-esophageal reflux disease with esophagitis; K44.9 Diaphragmatic hernia without obstruction or gangrene; K31.89 Other diseases of stomach and duodenum; K31.819 Angiodysplasia of stomach and duodenum without bleeding; Z96.641 Presence of right artificial hip joint; Z96.653 Presence of artificial knee joint, bilateral; D63.8 Anemia in other chronic diseases classified elsewhere; E61.1 Iron deficiency
CPT/HCPCS: 36415; 71045-TC; 80048-TC; 80061-TC; 80076-TC; 81000-TC; 82272-TC; 82570-TC; 83540-TC; 83735-TC; 84100-TC; 84155-TC; 84300-TC; 84443-TC; 84484-TC; 85025-TC; 85730-TC; 86850-TC; 86921-TC; 87081-TC; A4606; C9113; G0378; J2704; J3490; J7030; J7050; P9016-BL; Q0177; Z7610

== ENCOUNTER 2018-09-06 14:48 | Inpatient (IN) | payer MEDICAID, MEDICARE ==
[~2018-09-06] VITALS: Ht 170.2 cm; Wt 56.2 kg
[~2018-09-06 14:48] MED LIST changes: -ASPI-1169 PO; +HYDR-3026 PO; +OMEP20TA20 PO; -OMEP40CA37 PO
--- NOTE | 2018-09-06 14:48 | NUR ---
PT BIB FAMILY C/O SEND BY PMD FOR ANEMIA AND ABDOMINAL PAIN. PT IS AAOX4, NOT IN RESPIRATORY DISTRESS, V/S STABLE, HOOKED TO MONITOR, KEPT RESTED AND COMFORTABLE, WILL CONTINUE TO MONITOR.
--- NOTE | 2018-09-06 15:30 | NUR ---
LABS DRAWNED AND SENT TO LAB.
--- NOTE | 2018-09-06 15:32 | NUR ---
DR. JULIEN AT BEDSIDE FOR EVAL.
[2018-09-06 15:35] LABS: BASOPHILS % (AUTO) 0.9 % (0.0-2.0); EOSINOPHILS % (AUTO) 4.9 % (0.0-6.0); HEMATOCRIT 22 % (39-51); LYMPHOCYTES # (AUTO) 1.5 /CMM (0.8-4.8); MEAN CORPUSCULAR HGB CONC 32 g/dl (31.0-36.0); MEAN CORPUSCULAR VOLUME 88 fL (80-96); MONOCYTES # (AUTO) 0.4 /CMM (0.1-1.30); MONOCYTES % (AUTO) 8.4 % (2.0-12.0); NEUTROPHILS # (AUTO) 2.6 /CMM (1.8-8.9); NEUTROPHILS % (AUTO) 53.8 % (43.0-81.0); PLATELET COUNT (AUTO) 259 /CMM (150-450); RED BLOOD CELL COUNT(AUTO) 2.48 MIL/uL (4.5-6.0); WHITE BLOOD COUNT (AUTO) 4.7 K/uL (4.3-11.0)
[2018-09-06 15:56] LABS: CALCIUM, SERUM 8.7 mg/dL (8.5-10.1); CARBON DIOXIDE 23 mmol/L (21-32); CHLORIDE 108 mmol/L (98-107); CREATININE 1.8 mg/dL (0.6-1.3); GLUCOSE 144 mg/dL (74-106); POTASSIUM 4.5 mmol/L (3.5-5.1); SODIUM SERUM 141 mmol/L (136-145); UREA NITROGEN, BLOOD 26 mg/dL (7-18)
[2018-09-06 16:01] LABS: ALANINE AMINOTRANSFERASE 19 U/L (12-78); ALKALINE PHOSPHATASE 63 U/L (46-116); ASPARTATE AMINOTRANSFERASE 34 U/L (15-37); BILIRUBIN,DIRECT 0.1 mg/dL (0.0-0.2); BILIRUBIN,TOTAL 0.3 mg/dL (0.2-1.0); LIPASE 67 U/L (73-393)
[2018-09-06 16:08] LABS: ALBUMIN 3.4 g/dL (3.4-5.0)
[2018-09-06] MEDS ORDERED: PANTOPRAZOLE 80 MG in IV NS 0.9% 500 ML IV ONE (17:00)
[2018-09-06] MEDS ORDERED: OMEP20TA20 PO (17:02)
[2018-09-06] MEDS ORDERED: AMOX1TAB16 PO (17:02)
[2018-09-06] MEDS ORDERED: TRAM50TA2 PO (17:02)
[2018-09-06] MEDS ORDERED: DULO20CA18 PO (17:02)
--- NOTE | 2018-09-06 17:12 | NUR ---
REPORTT GIVEN TO EB MONTERO FOR WILIAN.
[2018-09-06] MEDS ORDERED: Z GUARD REMEDY 2 OZ OINT TP PRN (20:00)
[2018-09-06] MEDS ORDERED: MAG HYDROX/AL HYDROX/SIMETH 30 ML UDC PO PRN (20:00)
[2018-09-06] MEDS ORDERED: ONDANSETRON HCL/PF 4 MG/2 ML VIAL IVP PRN (20:00)
[2018-09-06 20:18] VITALS: BP 120/52
[2018-09-06 20:48] VITALS: BP 120/43
[2018-09-06 21:03] VITALS: BP 105/60
[2018-09-06 23:40] VITALS: BP 129/65
[2018-09-07] VITALS (12 sets, daily range): BP systolic 119–145; BP diastolic 53–89
[2018-09-07] MEDS: IV D5/0.45 NACL 1,000 ML IV PRN (02:02)
--- NOTE | 2018-09-07 06:14 | NUR ---
GARMENT SEWER HAND NOTES AWAKE & RESPONSIVE. NOT IN ANY DISTRESS. NO SOB NOTED. DENIES ANY PAIN OR DISCOMFORT AT THIS TIME. ON TELE VPACING @ 60 WITH IVF INFUSING WELL. MONITORED ACCORDINGLY. CALL LIGHT WITHIN REACH. BED IN LOWEST POSITION. SR UP X 3 WITH BED ALARM ON FOR SAFETY. WILL ENDORSE TO NEXT SHIFT.
[2018-09-07 06:38] LABS: BASOPHILS % (AUTO) 0.9 % (0.0-2.0); EOSINOPHILS % (AUTO) 5.3 % (0.0-6.0); HEMATOCRIT 22 % (39-51); HEMOGLOBIN 7.3 g/dL (13.5-17.5); LYMPHOCYTES # (AUTO) 1.5 /CMM (0.8-4.8); LYMPHOCYTES % (AUTO) 38.3 % (20.0-44.0); MEAN CORPUSCULAR HGB CONC 33 g/dl (31.0-36.0); MEAN CORPUSCULAR VOLUME 86 fL (80-96); MONOCYTES # (AUTO) 0.4 /CMM (0.1-1.30); MONOCYTES % (AUTO) 10.8 % (2.0-12.0); NEUTROPHILS # (AUTO) 1.8 /CMM (1.8-8.9); NEUTROPHILS % (AUTO) 44.7 % (43.0-81.0); PLATELET COUNT (AUTO) 164 /CMM (150-450); RED BLOOD CELL COUNT(AUTO) 2.57 MIL/uL (4.5-6.0)
[2018-09-07 07:11] LABS: CHOLESTEROL 109 mg/dL (<200); HDL CHOLESTEROL 43 mg/dL (40-60); LDL 62 mg/dL (0-99); TRIGLYCERIDES 64 mg/dL (30-150)
[2018-09-07 07:13] LABS: ALANINE AMINOTRANSFERASE 16 U/L (12-78); ALBUMIN 2.7 g/dL (3.4-5.0); ALKALINE PHOSPHATASE 50 U/L (46-116); ASPARTATE AMINOTRANSFERASE 23 U/L (15-37); BILIRUBIN,TOTAL 0.4 mg/dL (0.2-1.0); CARBON DIOXIDE 21 mmol/L (21-32); CHLORIDE 106 mmol/L (98-107); CREATININE 1.5 mg/dL (0.6-1.3); GLUCOSE 102 mg/dL (74-106); MAGNESIUM 2.1 mg/dL (1.8-2.4); POTASSIUM 3.3 mmol/L (3.5-5.1); SODIUM SERUM 134 mmol/L (136-145); TOTAL PROTEIN, SERUM 5.5 g/dL (6.4-8.2); UREA NITROGEN, BLOOD 24 mg/dL (7-18)
--- NOTE | 2018-09-07 07:49 | NUR ---
KETTLE TENDER OPENING NOTE RECEIVED PATIENT IN BED. ALERT ORIENTED X3. ON ROOM AIR, TOLERATING WELL. IN NO APPARENT DISTRESS OR DISCOMFORT AT THIS TIME. RESPIRATIONS EVEN AND UNLABORED. DENIES PAIN AND SOB AT THIS TIME. PATIENT IS ABLE TO COMMUNICATE NEEDS. ON TELE MONITORING WITH SR AND HR IN 60S. NPO STATUS AT THIS TIME, SIGN ON THE DOOR. IV ACCESS ON RIGHT AC 18G, WITH FLUIDS RUNNING AT 75ML/HR, PATENT AND INTACT. PATIENT KEPT CLEAN AND COMFORTABLE. SAFETY MEASURES IN PLACE, BED IN LOW LOCKED POSITION, SIDE RAILS UP X2, CALL LIGHT WITHIN EASY REACH. WILL CONTINUE TO MONITOR.
--- NOTE | 2018-09-07 08:20 | NUR ---
PER DR. MCNAIR ORDER PROTONIX 40MG IV TWICE DAILY. PATIENT OK TO START CLEAR LIQUID DIET, ADVANCE TOLERATED. OBTAIN SURGICAL CONSULT. ORDERS R/B AND VERIFIED. NOTED AND CARRIED OUT.
[2018-09-07] MEDS: PANTOPRAZOLE 40 MG VIAL IV SCH ×2 (09:09→20:44)
[2018-09-07] MEDS: POTASSIUM CHLORIDE 20 MEQ POWDER PACKET PO SCH ×2 (11:57→13:14)
--- NOTE | 2018-09-07 19:20 | NUR ---
1 UNIT OF PRBC TRANSFUSION COMPLETED. NO ADVERSE REACTIONS NOTED OR OBSERVED. WILL CONTINUE TO MONITOR.
--- NOTE | 2018-09-07 19:36 | NUR ---
MS RN CLOSING NOTE PATIENT IN BED. ALERT ORIENTED X3. ON ROOM AIR, TOLERATING WELL. IN NO APPARENT DISTRESS OR DISCOMFORT AT THIS TIME. RESPIRATIONS EVEN AND UNLABORED. DENIES PAIN AND SOB AT THIS TIME. PATIENT IS ABLE TO COMMUNICATE NEEDS. IV ACCESS ON LEFT FA 20G, SL, PATENT AND INTACT. PATIENT KEPT CLEAN AND COMFORTABLE. ALL NEEDS ATTENDED, SAFETY MEASURES IN PLACE, BED IN LOW LOCKED POSITION, SIDE RAILS UP X2, CALL LIGHT WITHIN EASY REACH. WILL ENDORSE TO PM NURSE FOR WILIAN.
[2018-09-07] MEDS: ZOLPIDEM TARTRATE 5 MG TABLET PO PRN (20:44)
--- NOTE | 2018-09-07 21:26 | NUR ---
recieving notes: alert and orientated speech clear soft spoken. snack served per his requiste consumed 100%. bed alarm on and reviewed the call light system with him
[2018-09-08] MEDS: IV D5/0.45 NACL 1,000 ML IV PRN (01:48)
--- NOTE | 2018-09-08 05:39 | NUR ---
ENDING NOTES: FREQUENTLY GETS UP AND USES THE URINAL. ALERT AND ORIENTATED. WATCHING TV WESTERNS THRU THE NIGHT. FRIENDLY AND COOPERATIVE. NO RECTAL BLEEDING SEEN THIS 12 HOURS. WILL PASS ON TO DAY SHIFT TO CHECK LATEST h/h THIS AM. BED ALARM THIS 12 HOURS D/T HE DOES BECOME CONFUSED AND WANTS TO GET OOB.
[2018-09-08 07:19] LABS: BASOPHILS % (AUTO) 0.6 % (0.0-2.0); EOSINOPHILS % (AUTO) 5.2 % (0.0-6.0); HEMATOCRIT 27 % (39-51); LYMPHOCYTES # (AUTO) 1.4 /CMM (0.8-4.8); LYMPHOCYTES % (AUTO) 30.6 % (20.0-44.0); MEAN CORPUSCULAR HGB CONC 33 g/dl (31.0-36.0); MEAN CORPUSCULAR VOLUME 87 fL (80-96); MONOCYTES # (AUTO) 0.4 /CMM (0.1-1.30); MONOCYTES % (AUTO) 9.6 % (2.0-12.0); NEUTROPHILS # (AUTO) 2.5 /CMM (1.8-8.9); PLATELET COUNT (AUTO) 175 /CMM (150-450); RED BLOOD CELL COUNT(AUTO) 3.13 MIL/uL (4.5-6.0); WHITE BLOOD COUNT (AUTO) 4.6 K/uL (4.3-11.0)
[2018-09-08 07:32] LABS: ALANINE AMINOTRANSFERASE 15 U/L (12-78); ALBUMIN 2.7 g/dL (3.4-5.0); ALKALINE PHOSPHATASE 53 U/L (46-116); ASPARTATE AMINOTRANSFERASE 25 U/L (15-37); BILIRUBIN,TOTAL 0.5 mg/dL (0.2-1.0); CALCIUM, SERUM 8.1 mg/dL (8.5-10.1); CARBON DIOXIDE 19 mmol/L (21-32); CHLORIDE 109 mmol/L (98-107); CREATININE 1.3 mg/dL (0.6-1.3); GLUCOSE 102 mg/dL (74-106); MAGNESIUM 1.9 mg/dL (1.8-2.4); POTASSIUM 4.3 mmol/L (3.5-5.1); SODIUM SERUM 138 mmol/L (136-145); TOTAL PROTEIN, SERUM 5.9 g/dL (6.4-8.2); UREA NITROGEN, BLOOD 20 mg/dL (7-18)
--- NOTE | 2018-09-08 07:43 | NUR ---
MS EB CLOSING NOTE RECEIVED PATIENT IN BED. ALERT ORIENTED X3. ON ROOM AIR, TOLERATING WELL. IN NO APPARENT DISTRESS OR DISCOMFORT AT THIS TIME. RESPIRATIONS EVEN AND UNLABORED. DENIES PAIN AND SOB AT THIS TIME. PATIENT IS ABLE TO COMMUNICATE NEEDS. IV ACCESS ON LEFT FA 20G, SL, PATENT AND INTACT. PATIENT KEPT CLEAN AND COMFORTABLE. ALL NEEDS ATTENDED, SAFETY MEASURES IN PLACE, BED IN LOW LOCKED POSITION, SIDE RAILS UP X2, CALL LIGHT WITHIN EASY REACH. WILL CONTINUE TO MONITOR. Addendum: 09/08/18 at 0747 by JACKSON GARY RN ERROR. OPENING NOTE
--- NOTE | 2018-09-08 07:46 | NUR ---
MS RN OPENING NOTE RECEIVED PATIENT IN BED. ALERT ORIENTED X3. ON ROOM AIR, TOLERATING WELL. IN NO APPARENT DISTRESS OR DISCOMFORT AT THIS TIME. RESPIRATIONS EVEN AND UNLABORED. DENIES PAIN AND SOB AT THIS TIME. PATIENT IS ABLE TO COMMUNICATE NEEDS. IV ACCESS ON LEFT FA 20G, SL, PATENT AND INTACT. PATIENT KEPT CLEAN AND COMFORTABLE. ALL NEEDS ATTENDED, SAFETY MEASURES IN PLACE, BED IN LOW LOCKED POSITION, SIDE RAILS UP X2, CALL LIGHT WITHIN EASY REACH. WILL CONTINUE TO MONITOR.
[2018-09-08 08:00] VITALS: BP 150/74
[2018-09-08] MEDS: DULOXETINE HCL 20 MG CAPSULE.DR PO SCH (09:12)
[2018-09-08] MEDS: CARVEDILOL 6.25 MG TABLET PO SCH ×2 (09:12→17:14)
[2018-09-08] MEDS: PANTOPRAZOLE 40 MG VIAL IV SCH ×2 (09:13→21:30)
[2018-09-08] MEDS: LEVOTHYROXINE SODIUM 25 MCG TABLET PO SCH (09:13)
[2018-09-08] MEDS ORDERED: DIATR MEGLU/DIATRIZOATE SODIUM 120 ML BOTTLE (GASTROGRAPHIN) ONE (10:18)
--- NOTE | 2018-09-08 10:57 | NUR ---
MEDICATION GASTROGRAFIN WAS PROVIDED TO THE PATIENT FROM RADIOLOGY TO BE TAKEN FOR ORDERED CT OF ABDOMEN WITH ORAL CONTRAST. PATIENT WAS INSTRUCTED TO DRINK THE WHOLE SUBSTANCE IN A TIMELY MANNER. WILL MONITOR AND NOTIFY RADIOLOGY SOON MEDICATION IS CONSUMED.
--- NOTE | 2018-09-08 15:57 | NUR ---
PATIENT REPORTS NEW ONSET OF DIARRHEA THE LAST [address] MCKEON, NO ORDERS FOR SAMPLE AT THIS TIME THE SYMPTOMS COULD BE RELATED TO THE ORAL DYE INGESTED BY PATIENT A FEW HOURS AGO. PER DR MCKEON MONITOR WBC COUNT AT THIS TIME, IF ELEVATED AND DIARRHEA PERSISTS, SEND STOOL SAMPLE FOR C-DIFF. NOTED AND CARRIED OUT.
[2018-09-08 16:00] VITALS: BP 133/69
--- NOTE | 2018-09-08 19:30 | NUR ---
MS RN INITIAL NOTES Patient is awake, sitting up in bed. Stable oxygen saturation on RA. IVC in left AC patent and intact, flushes well. Denies pain. Place call light within reach, instructed to use for assistance, verbalized understanding. Will cont to monitor.
[2018-09-08 20:00] VITALS: BP 122/63
[2018-09-08] MEDS ORDERED: ACETAMINOPHEN 325 MG TABLET PO PRN (20:30)
[2018-09-08] MEDS: ZOLPIDEM TARTRATE 5 MG TABLET PO PRN (21:30)
--- NOTE | 2018-09-09 06:29 | NUR ---
MS RN CLOSING NOTES Patient in bed, awake, A/O x3. Stable oxygen saturation on RA. Abdominal pain controlled with PRN Tylenol, no s/s of bleeding. No acute events overnight, slept well. No surgical intervention at this time per WEATHERIZATION INSTALLER Lily/surgery. Maintained safety, will endorse to oncoming RN.
[2018-09-09] MEDS: LEVOTHYROXINE SODIUM 25 MCG TABLET PO SCH (06:41)
[2018-09-09 07:45] LABS: BASOPHILS # (AUTO) 0.1 /CMM (0.0-0.2); BASOPHILS % (AUTO) 1.1 % (0.0-2.0); EOSINOPHILS % (AUTO) 8.1 % (0.0-6.0); HEMATOCRIT 30 % (39-51); HEMOGLOBIN 10.2 g/dL (13.5-17.5); LYMPHOCYTES # (AUTO) 1.6 /CMM (0.8-4.8); LYMPHOCYTES % (AUTO) 32.6 % (20.0-44.0); MEAN CORPUSCULAR HGB CONC 34 g/dl (31.0-36.0); MEAN CORPUSCULAR VOLUME 86 fL (80-96); MONOCYTES # (AUTO) 0.4 /CMM (0.1-1.30); MONOCYTES % (AUTO) 9.4 % (2.0-12.0); NEUTROPHILS # (AUTO) 2.3 /CMM (1.8-8.9); NEUTROPHILS % (AUTO) 48.8 % (43.0-81.0); PLATELET COUNT (AUTO) 196 /CMM (150-450); RED BLOOD CELL COUNT(AUTO) 3.54 MIL/uL (4.5-6.0); WHITE BLOOD COUNT (AUTO) 4.8 K/uL (4.3-11.0)
--- NOTE | 2018-09-09 07:46 | NUR ---
MS RN OPENING NOTE RECEIVED PATIENT IN BED. SLEEPING, EASILY AROUSED WITH VERBAL STIMULI ORIENTED X3. ON ROOM AIR, TOLERATING WELL. IN NO APPARENT DISTRESS OR DISCOMFORT AT THIS TIME. RESPIRATIONS EVEN AND UNLABORED. DENIES PAIN AND SOB AT THIS TIME. PATIENT IS ABLE TO COMMUNICATE NEEDS. IV ACCESS ON LEFT FA 20G, SL, PATENT AND INTACT. PATIENT KEPT CLEAN AND COMFORTABLE. ALL NEEDS ATTENDED, SAFETY MEASURES IN PLACE, BED IN LOW LOCKED POSITION, SIDE RAILS UP X2, CALL LIGHT WITHIN EASY REACH. WILL CONTINUE TO MONITOR.
[2018-09-09 08:00] VITALS: BP 159/76
[2018-09-09 08:17] LABS: CALCIUM, SERUM 8.5 mg/dL (8.5-10.1); CARBON DIOXIDE 19 mmol/L (21-32); CHLORIDE 111 mmol/L (98-107); CREATININE 1.2 mg/dL (0.6-1.3); GLUCOSE 89 mg/dL (74-106); MAGNESIUM 2.2 mg/dL (1.8-2.4); PHOSPHORUS 3.1 mg/dL (2.5-4.9); POTASSIUM 4.2 mmol/L (3.5-5.1); SODIUM SERUM 143 mmol/L (136-145); UREA NITROGEN, BLOOD 18 mg/dL (7-18)
[2018-09-09 08:39] VITALS: BP 159/76
[2018-09-09] MEDS: CARVEDILOL 6.25 MG TABLET PO SCH (08:39)
[2018-09-09] MEDS: DULOXETINE HCL 20 MG CAPSULE.DR PO SCH (08:39)
[2018-09-09] MEDS: PANTOPRAZOLE 40 MG VIAL IV SCH (08:42)
--- NOTE | 2018-09-09 16:30 | NUR ---
MS CERTIFIED MEDICAL TRANSCRIPTIONIST NOTE RECEIVED ORDER FOR DISCHARGE FROM DR. ADEN. PATIENT IS BEING DISCHARGED HOME IN STABLE CONDITION. VITAL SIGNS STABLE, AT BASELINE LOC, IN NO APPARENT DISTRESS OR DISCOMFORT AT THIS TIME. RESPIRATIONS EVEN AND UNLABORED, DENIES PAIN AND SOB. DISCHARGE PAPERWORK PREPARED VIA [employer]. REVIEWED AND EDUCATION PROVIDED REGARDING DISCHARGE AND FOLLOW UP CARE TO THE PATIENT. FOLLOW UP APPOINTMENTS MADE AND REVIEWED WITH THE PATIENT. VERBALIZED UNDERSTANDING OF ALL INSTRUCTIONS. VALUABLES CHECKED AND ACCOUNTED FOR. ALL PAPERWORK SIGNED, COPIES MADE PLACED IN CHART. PATIENT IS UP TO DATE WITH IMMUNIZATIONS. SKIN ASSESSED, NO IMPAIRMENTS NOTED. PATIENT'S PERIPHERAL IV DISCONTINUED, TIP INTACT. ID BAND REMOVED. PATIENT LEFT THE UNIT ON HIS OWN WHEELCHAIR, ACCOMPANIED BY SIGNIFICANT OTHER GISELL, AND KRISTOPHER MAXWELL AT 1630.
== END 2018-09-09 16:30 | disposition home or self-care (01) | DRG 377 ==
LOC: ER 14:55 → TELE 17:12 → MED 09-07 10:16
PROVIDERS: ADMIT Student in an Organized Health Care Education/Training Program; ATTEND Student in an Organized Health Care Education/Training Program
PROC: 30233N1 Transfusion of Nonautologous Red Blood Cells into Peripheral Vein, Percutaneous Approach (ICD-10-PCS; principal; 2018-09-06)
DX: K92.2 Gastrointestinal hemorrhage, unspecified (principal); N17.0 Acute kidney failure with tubular necrosis; E44.0 Moderate protein-calorie malnutrition; E87.1 Hypo-osmolality and hyponatremia; Z68.1 Body mass index [BMI] 19.9 or less, adult; D62 Acute posthemorrhagic anemia; K21.0 Gastro-esophageal reflux disease with esophagitis; I11.0 Hypertensive heart disease with heart failure; I50.9 Heart failure, unspecified; K44.9 Diaphragmatic hernia without obstruction or gangrene; E03.9 Hypothyroidism, unspecified; E87.6 Hypokalemia; G89.4 Chronic pain syndrome; I25.10 Atherosclerotic heart disease of native coronary artery without angina pectoris; K31.89 Other diseases of stomach and duodenum; Z95.810 Presence of automatic (implantable) cardiac defibrillator; G47.00 Insomnia, unspecified; E88.09 Other disorders of plasma-protein metabolism, not elsewhere classified; D50.0 Iron deficiency anemia secondary to blood loss (chronic); Z96.653 Presence of artificial knee joint, bilateral; Z96.641 Presence of right artificial hip joint; G62.9 Polyneuropathy, unspecified
CPT/HCPCS: 36415; 80048-TC; 80053-TC; 80061-TC; 80076-TC; 83690-TC; 83735-TC; 84100-TC; 84484-TC; 85025-TC; 85730-TC; 86850-TC; 86921-TC; 87081-TC; C9113; G0378; J3490; J7040; J7050; P9016-BL; Q9963

== ENCOUNTER 2018-09-10 12:19 | Outpatient (CLI) | payer MEDICARE ==
[~2018-09-10 12:19] MED LIST changes: -BUME1TAB4 PO; +DULO20CA18 PO; -GABA-534 PO; -HYDR25TA4 PO; -METO5TAB7 PO; -POTA20TA83 PO; +TRAM50TA2 PO
[2018-09-10 12:32] VITALS: BP 96/50
== END 2018-09-10 23:59 | disposition home or self-care (01) ==
LOC: MSC 12:19
PROVIDERS: ATTEND Nurse Practitioner Acute Care
DX: I85.00 Esophageal varices without bleeding (principal); K21.0 Gastro-esophageal reflux disease with esophagitis; K31.9 Disease of stomach and duodenum, unspecified; K44.9 Diaphragmatic hernia without obstruction or gangrene; K31.819 Angiodysplasia of stomach and duodenum without bleeding; I11.0 Hypertensive heart disease with heart failure; I50.9 Heart failure, unspecified; I25.10 Atherosclerotic heart disease of native coronary artery without angina pectoris; D50.9 Iron deficiency anemia, unspecified; E03.9 Hypothyroidism, unspecified; G47.00 Insomnia, unspecified; Z95.0 Presence of cardiac pacemaker; Z96.653 Presence of artificial knee joint, bilateral

== ENCOUNTER 2018-09-12 13:14 | Outpatient (CLI) | payer MEDICARE ==
[2018-09-12 13:30] VITALS: BP 120/63
== END 2018-09-12 23:59 | disposition home or self-care (01) ==
LOC: MSC 13:14
PROVIDERS: ATTEND Internal Medicine Gastroenterology
DX: D64.9 Anemia, unspecified (principal); I85.00 Esophageal varices without bleeding; K31.819 Angiodysplasia of stomach and duodenum without bleeding; K20.9 Esophagitis, unspecified; I10 Essential (primary) hypertension; Z96.653 Presence of artificial knee joint, bilateral; Z79.899 Other long term (current) drug therapy

== ENCOUNTER 2018-10-17 10:40 | Outpatient (CLI) | payer MEDICARE ==
[2018-10-17 11:02] VITALS: BP 106/60
== END 2018-10-17 23:59 | disposition home or self-care (01) ==
LOC: MSC 10:40
PROVIDERS: ATTEND Internal Medicine Gastroenterology
DX: K21.0 Gastro-esophageal reflux disease with esophagitis (principal); I85.00 Esophageal varices without bleeding; K44.9 Diaphragmatic hernia without obstruction or gangrene; K31.9 Disease of stomach and duodenum, unspecified; K31.819 Angiodysplasia of stomach and duodenum without bleeding; D64.9 Anemia, unspecified; Z87.19 Personal history of other diseases of the digestive system

== ENCOUNTER 2018-12-27 11:57 | Emergency (ER) | payer MEDICARE ==
[~2018-12-27] VITALS: Ht 170.2 cm; Wt 59.0 kg
[2018-12-27 12:00] VITALS: BP 109/62
== END 2018-12-27 13:06 | disposition home or self-care (01) ==
LOC: ER 11:59
DX: L30.9 Dermatitis, unspecified (principal); I10 Essential (primary) hypertension; Z95.0 Presence of cardiac pacemaker; G89.4 Chronic pain syndrome; Z98.890 Other specified postprocedural states; Z96.653 Presence of artificial knee joint, bilateral; Z96.641 Presence of right artificial hip joint; Z79.899 Other long term (current) drug therapy

== ENCOUNTER 2018-12-30 08:35 | Emergency (ER) | payer MEDICARE ==
[~2018-12-30] VITALS: Ht 170.2 cm; Wt 59.0 kg
[2018-12-30 08:44] VITALS: BP 116/61
--- NOTE | 2018-12-30 08:51 | NUR ---
AAOX4. NAD, BREATHING EVEN AND UNLABORED. AMBULATORY WITH ASSIST. C/O L SHOULDER PAIN X 2 DAYS, 04/25. PT ALSO REPORT HAVE ITCHNG ON THE LOWER BACK, NOTED RASHES. DENIES CP, -N/V/D. TO ER BED 11. MD AT BEDSIDE FOR EVAL
--- NOTE | 2018-12-30 08:51 | NUR ---
Note consueloone in EDM - 12/30/18 at 0852 by POPPY AAOX4. NAD, BREATHING EVEN AND UNLABORED. AMBULATORY WITH ASSIST. C/O L SHOULDER PAIN X 2 DAYS, 04/25. PT ALSO REPORT HAVE ITCHNG ON THE LOWER BACK, NOTED RASHES. TO ER BED 11. AT BEDSIDE FOR DORISAL
[2018-12-30] MEDS ORDERED: KETOROLAC TROMETHAMINE 15 MG/ML VIAL ONE (08:56)
[2018-12-30] MEDS ORDERED: KETOROLAC TROMETHAMINE INJ 30 MG/ML VIAL IV ONE (09:00)
== END 2018-12-30 09:04 | disposition home or self-care (01) ==
LOC: ER 08:37
DX: G89.29 Other chronic pain (principal); M25.512 Pain in left shoulder; L29.9 Pruritus, unspecified; I10 Essential (primary) hypertension; M19.90 Unspecified osteoarthritis, unspecified site; Z95.0 Presence of cardiac pacemaker; Z98.890 Other specified postprocedural states; Z96.653 Presence of artificial knee joint, bilateral; Z96.641 Presence of right artificial hip joint; Z79.899 Other long term (current) drug therapy
CPT/HCPCS: 96374; 99283; J1885

== ENCOUNTER 2018-12-31 08:11 | Emergency (ER) | payer MEDICARE ==
[~2018-12-31] VITALS: Ht 170.2 cm; Wt 59.0 kg
--- NOTE | 2018-12-31 08:29 | NUR ---
PT WHEELED TO ED BED 10 C/O L ARMPIT AREA PAIN ALL NIGHT. PT WAS SEEN HERE YESTERDAY FOR L SHOULDER PAIN. PT DENIES CHEST PAIN OR SOB. STABLE VITALS. AWAITING MD CARREON.
--- NOTE | 2018-12-31 08:38 | NUR ---
DR PRIEST AT BEDSIDE
--- NOTE | 2018-12-31 08:38 | NUR ---
DR PRIEST AT BEDSIDE FOR EVAL.
[2018-12-31] MEDS ORDERED: KETOROLAC TROMETHAMINE 15 MG/ML VIAL ONE (09:10)
--- NOTE | 2018-12-31 09:19 | NUR ---
Patient discharged to home in stable condition. Written and verbal after care instructions given. Patient verbalizes understanding of instruction.
[2018-12-31 09:22] VITALS: BP 116/62
[2018-12-31] MEDS ORDERED: KETOROLAC TROMETHAMINE INJ 30 MG/ML VIAL IM ONE (09:30)
== END 2018-12-31 09:22 | disposition home or self-care (01) ==
LOC: ER 08:11
DX: M25.512 Pain in left shoulder (principal); I10 Essential (primary) hypertension; G89.4 Chronic pain syndrome; Z95.0 Presence of cardiac pacemaker; Z98.890 Other specified postprocedural states; Z96.653 Presence of artificial knee joint, bilateral
CPT/HCPCS: 71045; 73030; 96372; 99283; J1885

== ENCOUNTER 2019-01-05 08:52 | Emergency (ER) | payer MEDICARE ==
[~2019-01-05] VITALS: Ht 157.5 cm; Wt 49.9 kg
[~2019-01-05 08:52] MED LIST changes: -DULO20CA18 PO; +DULO20CA19 PO
[2019-01-05 09:01] VITALS: BP 125/65
[2019-01-05] MEDS ORDERED: MORPHINE SULFATE INJ 4 MG/ML DISP.SYRIN ONE (09:24)
[2019-01-05] MEDS ORDERED: MORPHINE SULFATE INJ 2 MG/ML DISP.SYRIN IM ONE (09:30)
--- NOTE | 2019-01-05 09:55 | NUR ---
Instructed patient not to drive, per patient girlfriend is outside, waiting. Rx provided and explained. Patient discharged to home in stable condition. Written and verbal after care instructions given. Patient verbalizes understanding of instruction.
== END 2019-01-05 09:56 | disposition home or self-care (01) ==
LOC: ER 08:55
DX: M25.512 Pain in left shoulder (principal); G89.29 Other chronic pain; I10 Essential (primary) hypertension; F29 Unspecified psychosis not due to a substance or known physiological condition; Z95.0 Presence of cardiac pacemaker; Z98.890 Other specified postprocedural states; Z96.653 Presence of artificial knee joint, bilateral
CPT/HCPCS: 96372; 99283; J2270

== ENCOUNTER 2019-01-13 08:48 | Emergency (ER) | payer MEDICARE ==
[~2019-01-13] VITALS: Ht 170.2 cm; Wt 59.0 kg
[2019-01-13 08:48] VITALS: BP 100/54
[~2019-01-13 08:48] MED LIST changes: +DULO20CA18 PO; -DULO20CA19 PO
[2019-01-13] MEDS ORDERED: KETOROLAC TROMETHAMINE INJ 60 MG/2 ML VIAL IM ONE ×2 (09:13→09:30)
== END 2019-01-13 09:38 | disposition home or self-care (01) ==
LOC: ER 08:51
DX: M25.512 Pain in left shoulder (principal); G89.29 Other chronic pain; I10 Essential (primary) hypertension; Z59.0 Homelessness; Z98.890 Other specified postprocedural states; Z96.653 Presence of artificial knee joint, bilateral; Z96.641 Presence of right artificial hip joint
CPT/HCPCS: 96372; 99283; J1885

== ENCOUNTER 2019-01-13 20:53 | Emergency (ER) | payer MEDICARE ==
[~2019-01-13] VITALS: Ht 170.2 cm; Wt 59.0 kg
[2019-01-13 21:15] VITALS: BP 113/60
[2019-01-13] MEDS ORDERED: KETOROLAC TROMETHAMINE 15 MG/ML VIAL ONE (21:45)
[2019-01-13] MEDS ORDERED: KETOROLAC TROMETHAMINE INJ 30 MG/ML VIAL IM ONE (22:00)
== END 2019-01-13 21:56 | disposition home or self-care (01) ==
LOC: ER 20:54
DX: M25.512 Pain in left shoulder (principal); G89.29 Other chronic pain; I10 Essential (primary) hypertension; Z95.0 Presence of cardiac pacemaker; Z98.890 Other specified postprocedural states; Z96.653 Presence of artificial knee joint, bilateral; Z96.641 Presence of right artificial hip joint
CPT/HCPCS: 96372; 99283; J1885

== ENCOUNTER 2019-01-14 12:54 | Outpatient (CLI) | payer MEDICARE ==
[~2019-01-14 12:54] MED LIST changes: -DULO20CA18 PO; +DULO20CA19 PO
[2019-01-14 13:29] LABS: BASOPHILS % (AUTO) 0.4 % (0.0-2.0); EOSINOPHILS % (AUTO) 7.6 % (0.0-6.0); LYMPHOCYTES # (AUTO) 0.9 /CMM (0.8-4.8); LYMPHOCYTES % (AUTO) 17.3 % (20.0-44.0); MEAN CORPUSCULAR HGB CONC 31 g/dl (31.0-36.0); MEAN CORPUSCULAR VOLUME 76 fL (80-96); MONOCYTES # (AUTO) 0.5 /CMM (0.1-1.30); MONOCYTES % (AUTO) 9.1 % (2.0-12.0); NEUTROPHILS # (AUTO) 3.4 /CMM (1.8-8.9); NEUTROPHILS % (AUTO) 65.6 % (43.0-81.0); PLATELET COUNT (AUTO) 183 /CMM (150-450); RED BLOOD CELL COUNT(AUTO) 2.52 MIL/uL (4.5-6.0); WHITE BLOOD COUNT (AUTO) 5.1 K/uL (4.3-11.0)
[2019-01-14 15:24] LABS: BASOPHILS % (MANUAL) 1 % (0.0-2.0); EOSINOPHILS % (MANUAL) 9 % (0-4); LYMPHOCYTES % (MANUAL) 18 % (16-48); MONOCYTES % (MANUAL) 8 % (0-11.0); NEUTROPHILS % (MANUAL) 64 (42-76)
[2019-01-16 08:36] LABS: HEMATOCRIT 19 % (39-51)
== END 2019-01-14 23:59 | disposition home or self-care (01) ==
LOC: LAB 12:54
PROVIDERS: ATTEND Nurse Practitioner Acute Care
DX: D64.9 Anemia, unspecified (principal); R53.1 Weakness; I10 Essential (primary) hypertension; Z95.0 Presence of cardiac pacemaker
CPT/HCPCS: 36415; 85025-TC

== ENCOUNTER 2019-01-16 08:03 | Emergency (ER) | payer MEDICARE ==
[~2019-01-16] VITALS: Ht 170.2 cm; Wt 59.0 kg
[~2019-01-16 08:03] MED LIST changes: +DULO20CA18 PO; -DULO20CA19 PO
[2019-01-16 08:11] VITALS: BP 153/63
[2019-01-16] MEDS ORDERED: KETOROLAC TROMETHAMINE 15 MG/ML VIAL ONE (08:23)
[2019-01-16] MEDS ORDERED: KETOROLAC TROMETHAMINE INJ 60 MG/2 ML VIAL IM ONE (08:30)
== END 2019-01-16 08:31 | disposition home or self-care (01) ==
LOC: ER 08:03
DX: M25.512 Pain in left shoulder (principal); G89.29 Other chronic pain; I10 Essential (primary) hypertension; F29 Unspecified psychosis not due to a substance or known physiological condition; Z98.890 Other specified postprocedural states; Z96.653 Presence of artificial knee joint, bilateral; Z95.0 Presence of cardiac pacemaker; Z96.641 Presence of right artificial hip joint
CPT/HCPCS: 96372; 99283; J1885

== ENCOUNTER 2019-01-16 17:24 | Inpatient (IN) | payer MEDICARE ==
[~2019-01-16] VITALS: Ht 170.2 cm; Wt 60.3 kg
--- NOTE | 2019-01-16 17:24 | NUR ---
PT BIBSELF FOR LOW H&H PER PMD; PT AAOX4, -SOB, NAD NOTED, PT ON MONITOR, VSS, PENDING MD CARREON
[2019-01-16 18:03] LABS: EOSINOPHILS % (AUTO) 9.4 % (0.0-6.0); LYMPHOCYTES # (AUTO) 0.9 /CMM (0.8-4.8); LYMPHOCYTES % (AUTO) 23.5 % (20.0-44.0); MEAN CORPUSCULAR HGB CONC 31 g/dl (31.0-36.0); MEAN CORPUSCULAR VOLUME 77 fL (80-96); MONOCYTES # (AUTO) 0.6 /CMM (0.1-1.30); MONOCYTES % (AUTO) 15.6 % (2.0-12.0); NEUTROPHILS % (AUTO) 50.5 % (43.0-81.0); PLATELET COUNT (AUTO) 168 /CMM (150-450); RED BLOOD CELL COUNT(AUTO) 2.32 MIL/uL (4.5-6.0); WHITE BLOOD COUNT (AUTO) 3.9 K/uL (4.3-11.0)
[2019-01-16 18:05] LABS: HEMATOCRIT 18 % (39-51); HEMOGLOBIN 5.6 g/dL (13.5-17.5)
--- NOTE | 2019-01-16 18:10 | NUR ---
HGB 5.6 DR JULIEN AWARE
[2019-01-16 18:12] LABS: CALCIUM, SERUM 7.9 mg/dL (8.5-10.1); CARBON DIOXIDE 26 mmol/L (21-32); CHLORIDE 110 mmol/L (98-107); CREATININE 1.6 mg/dL (0.6-1.3); GLUCOSE 104 mg/dL (74-106); POTASSIUM 4.4 mmol/L (3.5-5.1); SODIUM SERUM 142 mmol/L (136-145); UREA NITROGEN, BLOOD 36 mg/dL (7-18)
[2019-01-16 18:21] LABS: ALANINE AMINOTRANSFERASE 20 U/L (12-78); ALBUMIN 2.7 g/dL (3.4-5.0); ALKALINE PHOSPHATASE 75 U/L (46-116); ASPARTATE AMINOTRANSFERASE 19 U/L (15-37); BILIRUBIN,DIRECT 0.1 mg/dL (0.0-0.2); BILIRUBIN,TOTAL 0.2 mg/dL (0.2-1.0); TOTAL PROTEIN, SERUM 5.7 g/dL (6.4-8.2)
[2019-01-16 18:56] LABS: EOSINOPHILS % (MANUAL) 10 % (0-4); LYMPHOCYTES % (MANUAL) 22 % (16-48); MONOCYTES % (MANUAL) 15 % (0-11.0); NEUTROPHILS % (MANUAL) 53 (42-76)
[2019-01-16] MEDS ORDERED: PANTOPRAZOLE 40 MG VIAL ONE (19:00)
[2019-01-16] MEDS ORDERED: PANTOPRAZOLE 80 MG in IV NS 0.9% 100 ML IV ONE (19:00)
[2019-01-16] MEDS ORDERED: MORPHINE SULFATE INJ 2 MG/ML DISP.SYRIN IV ONE (19:00)
[2019-01-16] MEDS ORDERED: MORPHINE SULFATE INJ 2 MG/ML DISP.SYRIN ONE (19:00)
--- NOTE | 2019-01-16 19:33 | NUR ---
BED 108
[2019-01-16 19:50] VITALS: BP 113/59
--- NOTE | 2019-01-16 19:52 | NUR ---
REPORT GIVEN TO RODNEY PARSON.
[2019-01-16 20:35] LABS: OCCULT BLOOD STOOL NEGATIVE (NEGATIVE)
[2019-01-16 20:40] VITALS: BP 120/49
--- NOTE | 2019-01-16 20:40 | NUR ---
STREET VENDOR NOTE 83 YEARS OLD MALE PATIENT ADMITTED TO TELE UNIT WITH DX OF ANEMIA. PATIENT HGB LEVELS 5.2, PATIENT RECEIVED WITH ONGOING BLOOD TRANSFUSION ORDERED. PATIENT PLACED IN BED, NO S/S OF ACUTE DISTRESS NOTED. RESPIRATION EVEN AND UNLABORED. NO SOB NOTED. PATIENT A/O X4, DENIES ANY PAIN OR DISCOMFORT AT THIS TIME. SKIN WARM TO TOUCH. BODY ASSESSMENT DONE PROTOCOL. SAFETY MAINTAINED, BED AT THE LOWEST POSITION, LOCKED. CALL LIGHT WITHIN REACH. WILL CONTINUE TO MONITOR PATIENT PER PLAN OF CARE.
[2019-01-16] MEDS ORDERED: MAGNESIUM HYDROXIDE 30 ML UDC PO PRN (23:00)
[2019-01-16] MEDS ORDERED: Z GUARD REMEDY 2 OZ OINT TP PRN (23:00)
[2019-01-16] MEDS ORDERED: OCTREOTIDE 50 MCG in IV NS 0.9% 50 ML IV ONE (23:00)
[2019-01-16] MEDS ORDERED: ONDANSETRON HCL/PF 4 MG/2 ML VIAL IVP PRN (23:00)
[2019-01-16] MEDS ORDERED: MAG HYDROX/AL HYDROX/SIMETH 30 ML UDC PO PRN (23:00)
[2019-01-16] MEDS ORDERED: OCTREOTIDE 1,250 MCG in IV NS 0.9% 247.5 ML IV PRN (23:00)
[2019-01-16] MEDS ORDERED: PANTOPRAZOLE 40 MG VIAL IV ONE (23:30)
[2019-01-16] MEDS: IV NS 0.9% 1,000 ML IV PRN (23:48)
--- NOTE | 2019-01-16 23:50 | NUR ---
2350 CALLED PENELOPE ALVAREZ TO [facility] OCTREOTIDE GTT WITH ORDER TO START PATIENT ON OCTREOTIDE DRIP AT 25MCG/HR. ORDER NOTED, CALLED PHARMACY AND SPOKE WITH DAYLIN REGARDING ORDER, SHE SAID MAY CUT DRIP CONCENTRATION TO 625MCG IN 125ML OF NS FOR NOW AND NEW BAG OF 1250MCG IN 250ML OF NS WILL BE PREPARED IN AM. HOUSE SUP NOTIFIED OF NEW ORDER.
[2019-01-17] VITALS (10 sets, daily range): BP systolic 116–143; BP diastolic 51–78
[2019-01-17] MEDS ORDERED: OCTREOTIDE 500 MCG/ML VIAL ONE ×2 (00:27→00:31)
[2019-01-17] MEDS ORDERED: OCTREOTIDE 100 MCG/ML VIAL ONE (00:28)
[2019-01-17] MEDS ORDERED: OCTREOTIDE 1,250 MCG in IV NS 0.9% 247.5 ML IV PRN (00:30)
[2019-01-17] MEDS ORDERED: PANTOPRAZOLE 40 MG VIAL ONE (01:05)
[2019-01-17 06:37] LABS: BASOPHILS % (AUTO) 0.7 % (0.0-2.0); EOSINOPHILS % (AUTO) 11.1 % (0.0-6.0); HEMATOCRIT 26 % (39-51); HEMOGLOBIN 8.4 g/dL (13.5-17.5); LYMPHOCYTES % (AUTO) 23.6 % (20.0-44.0); MEAN CORPUSCULAR HGB CONC 33 g/dl (31.0-36.0); MEAN CORPUSCULAR VOLUME 80 fL (80-96); MONOCYTES # (AUTO) 0.6 /CMM (0.1-1.30); MONOCYTES % (AUTO) 12.8 % (2.0-12.0); NEUTROPHILS # (AUTO) 2.2 /CMM (1.8-8.9); NEUTROPHILS % (AUTO) 51.8 % (43.0-81.0); PLATELET COUNT (AUTO) 172 /CMM (150-450); RED BLOOD CELL COUNT(AUTO) 3.23 MIL/uL (4.5-6.0); WHITE BLOOD COUNT (AUTO) 4.3 K/uL (4.3-11.0)
[2019-01-17] MEDS: TRAMADOL HCL 50 MG TABLET PO PRN (06:41)
[2019-01-17 06:55] LABS: CHOLESTEROL 105 mg/dL (<200); HDL CHOLESTEROL 49 mg/dL (40-60); LDL 49 mg/dL (0-99); THYROID STIMULATING HORMONE 0.868 uIU/mL (0.358-3.74); TRIGLYCERIDES 63 mg/dL (30-150)
--- NOTE | 2019-01-17 06:59 | NUR ---
TELE/RN EXIT NOTES PATIENT IN BED, RESTING COMFORTABLY AT THIS TIME . NO S/S OF ACUTE DISTRESS NOTED. RESPIRATION EVEN AND UNLABORED. NO SOB NOTED. ALL DUE MEDS, AND PRBC GIVEN ORDERED. PATIENT TOLERATED WELL. PATIENT C/O GENERALIZED PAIN 6/10 AT THIS TIME, PRN TRAMADOL GIVEN ORDERED. IV SITES ON LAC, AND RIGHT HAND NOTED WITH NO S/S OF INFECTION, INFILTRATION, RUNNING WITH 0.9% NS @50CC/HR AND SANDOSTATIN DRIPS 25MCG/HR. ON TELE MONITORING WITH V PACING, HR @60' AT THIS TIME. SAFETY MAINTAINED, BED AT THE LOWEST POSITION, LOCKED. CALL LIGHT WITHIN REACH. WILL ENDORSE TO AM SHIFT NURSE FOR WILIAN.
[2019-01-17 07:05] LABS: CALCIUM, SERUM 7.8 mg/dL (8.5-10.1); CARBON DIOXIDE 22 mmol/L (21-32); CHLORIDE 110 mmol/L (98-107); CREATININE 1.6 mg/dL (0.6-1.3); GLUCOSE 79 mg/dL (74-106); MAGNESIUM 2.2 mg/dL (1.8-2.4); PHOSPHORUS 3.7 mg/dL (2.5-4.9); POTASSIUM 4.7 mmol/L (3.5-5.1); SODIUM SERUM 141 mmol/L (136-145); UREA NITROGEN, BLOOD 32 mg/dL (7-18)
[2019-01-17] MEDS ORDERED: hydrOXYzine PAMOATE 25 MG CAPSULE PO PRN (07:30)
--- NOTE | 2019-01-17 07:30 | NUR ---
SUPERVISOR OF WAY AM NOTES PT IN BED, AOX4, ON ROOM AIR, NO SOB, RESPIRATION UNLABORED, V PACING HR 60, C/O GENERALIZED PAIN 4/10 AT THIS TIME, PRN TRAMADOL GIVEN EARLIER, NS AT 50ML AND SANDOSTATIN AT 25 MCG/HR [5 ML/HR] TO LEFT AC INFUSING WELL, RIGHT HAND G 20 IVHL FLUSHES WELL, BOTH SITES CLEAR, NPO FOR NOW, FOR GI CONSULT, SAFETY MEASURES IN PLACE, BED AT THE LOWEST POSITION, LOCKED. CALL LIGHT WITHIN REACH. WILL CONTINUE TO MONITOR
[2019-01-17] MEDS: SUCRALFATE 1 G TABLET PO SCH ×4 (08:21→21:16)
[2019-01-17] MEDS: LEVOTHYROXINE SODIUM 25 MCG TABLET PO SCH (08:21)
[2019-01-17] MEDS: FERROUS SULFATE (325 MG) 325 MG/TAB TABLET PO SCH (08:21)
[2019-01-17] MEDS: DULOXETINE HCL 20 MG CAPSULE.DR PO SCH ×2 (08:22→16:44)
[2019-01-17] MEDS: CARVEDILOL 6.25 MG TABLET PO SCH ×2 (08:22→16:44)
[2019-01-17] MEDS ORDERED: PANTOPRAZOLE 40 MG VIAL IV SCH (09:00)
[2019-01-17] MEDS ORDERED: NEXIUM 40 MG VIAL IV SCH (09:30)
--- NOTE | 2019-01-17 09:30 | NUR ---
THAI MASSEUR NOTES DUE MEDS GIVEN DR. NANCI CA AT BEDSIDE. OK TO HAVE ICE CHIPS. NPO EXCEPT MEDS.
--- NOTE | 2019-01-17 10:30 | NUR ---
MEDICATION COORDINATOR NOTES PER DR. CA, PUT PATIENT IN CLEAR LIQUID THEN NPO POST MIDNIGHT.
[2019-01-17] MEDS: IV NS 0.9% 1,000 ML IV PRN (17:33)
[2019-01-17] MEDS: FOLIC ACID 1 MG TABLET PO SCH (18:34)
--- NOTE | 2019-01-17 18:48 | NUR ---
SHACTOR HELPER NOTES PATIENT RESTING COMFORTABLY IN BED, NOT IN ANY DISTRESS. ONGOING SANDOSTATIN DRIP AND IVF. ALL NEEDS MET. NO OTHER SIGNIFICANT CHANGE IN CONDITION. CALL LIGHT WITHIN REACH. SAFETY MEASURES IN PLACE. WILL ENDORSE TO NEXT SHIFT FOR WILIAN. FOR EGD AND COLONOSCOPY JERMAIN C/O DR. MCNAIR. CONSENT SIGNED. BOWEL PREP TONIGHT. NPO POSTMIDNIGHT EXCEPT MEDS.
--- NOTE | 2019-01-17 19:10 | NUR ---
TELE/RN ENTRY NOTES PATIENT IN BED, RESTING COMFORTABLY AT THIS TIME . NO S/S OF ACUTE DISTRESS NOTED. RESPIRATION EVEN AND UNLABORED. NO SOB NOTED. PATIENT A/O X4, DENIES ANY PAIN AT THIS TIME. IV SITES ON LAC, AND RIGHT HAND NOTED WITH NO S/S OF INFECTION, INFILTRATION, RUNNING WITH 0.9% NS @50CC/HR AND SANDOSTATIN DRIPS 25MCG/HR. ON TELE MONITORING WITH V PACING. SAFETY MAINTAINED, BED AT THE LOWEST POSITION, LOCKED. CALL LIGHT WITHIN REACH. WILL CONTINUE TO MONITOR PATIENT PER PLAN OF CARE.
[2019-01-17] MEDS ORDERED: PEG 3350/NA SULF,BICARB,CL/KCL 4,000 ML BOTTLE PO ONE ×2 (20:00)
--- NOTE | 2019-01-17 20:29 | NUR ---
GOLYTELY WITH DUPLICATE ORDER.
[2019-01-17] MEDS: PANTOPRAZOLE 40 MG/PACK PACK PO SCH (20:50)
[2019-01-18] VITALS: BP 136/78
[2019-01-18] MEDS: TRAMADOL HCL 50 MG TABLET PO PRN ×2 (01:16→22:22)
[2019-01-18 04:00] VITALS: BP 161/74
--- NOTE | 2019-01-18 04:10 | NUR ---
PATIENT BP NOTED HIGH 161/74 CHECKED 2 TIMES. ALSO PATIENT IS HAVING EPISODES OF DRY COUGH. CALLLED KERI ALVAREZ AT THIS TIME, LEFT MESSAGE WAITING FOR IRVIN BACK.
--- NOTE | 2019-01-18 04:45 | NUR ---
KERI ALVAREZ CALLED BACK AT THIS TIME RELAYED PATIENT VITAL SIGNS AND CURRENT CONDITION, ALSO RELAYED TO ANTONIO THAT PATIENT IS TAKING GOLYTELY ORDERED TO CLEANSE COLON FOR COLONOSCOPY IN THE MORNING, AND CONSTANTLY GOING TO THE RESTROOM. RELAYED REGARDING PATIENT DRY COUGH, ANTONIO WITH NEW ORDER FOR COUGH AND ALSO MENTION THAT I AM OK WITH THE BP FOR NOW, CONTINUE TO MONITOR.
[2019-01-18] MEDS: GUAIFENESIN/D-METHORPHAN HB 5 ML UDC PO PRN ×2 (05:31→21:11)
[2019-01-18] MEDS ORDERED: SORBITOL SOLUTION 30 ML PO ONE (06:00)
--- NOTE | 2019-01-18 06:48 | NUR ---
TELE/RN NOTES PATIENT IN NO ACUTE DISTRESS. RESPIRATION EVEN AND UNLABORED. NO SOB NOTED. PATIENT DENIES ANY PAIN AT THIS TIME. PATIENT CONTINUE TAKING GOLYTELY FOR BOWEL PREP FOR COLONOSCOPY AND EGD, AND HAVING LIGHT GREEN WATERY BM'S. PRE-OP CHECKLIST DONE, WILL ENDORSE TO AM SHIFT NURSE TO, REMOVE PATIENT UPPER DENTURE BEFORE THE PROCEDURE. LAC 18 GAUGE INTACT, PATENT RUNNING WITH 0.9% NS @50CC/HR AND SANDOSTATIN ORDERED, NOTED WITH NO S/S OF INFECTION, INFILTRATION ALSO RIGHT WRIST 20 GAUGE INTACT, PATENT, NOTED WITH NO S/S OF INFECTION. SAFETY MAINTAINED, BED AT THE LOWEST POSITION, LOCKED. CALL LIGHT WITHIN REACH. WILL ENDORSE TO AM SHIFT NURSE FOR WILIAN
--- NOTE | 2019-01-18 07:00 | NUR ---
DIRECTOR OF OUTSIDE SALES OPENING NOTES RECEIVED PT LYING ON BED.ALERT/ORIENTED X4.ON TELE HR IS 60 WITH SR WITH V PACING .ON ROOM AIR,TOLERATING WELL.NO SOB AND ACUTE DISTRESS NOTED.CAN WALK WITH WALKER WITH MINIMAL SUPERVISION,TOLERATING WELL.ON NPO FOR EGD WITH COLONOSCOPY TODAY.BOWEL PREP IS DONE.ALL CONSENT IS SIGNED.IV LINE IS ON LEFT AC G18 WITH IV NS @50ML/HR AND IV SANDOSTATIN @25MSG/HR.SITE IS CLEAN DRY AND INTACT.BED IS IN ,LOW POSITION AND LOCKED,CALL LIGHT IS WITHIN REACH.WILL CONTINUE TO MONITOR THE PT CLOSELY.
[2019-01-18] MEDS: SUCRALFATE 1 G TABLET PO SCH ×4 (07:30→21:11)
[2019-01-18] MEDS: LEVOTHYROXINE SODIUM 25 MCG TABLET PO SCH (07:30)
[2019-01-18 08:00] VITALS: BP 150/76
--- NOTE | 2019-01-18 08:00 | NUR ---
DEAD MAIL CHECKER NOTES PT TRANSFERRED TO SURGERY UNIT FOR EGD WITH COLONOSCOPY.ALL CONSENT HAS SIGNED.ON NPO.UPPER DENTURES REMOVED.ON ROOM AIR,TOLERATING WELL.NO COMPLICATIONS NOTED.
[2019-01-18] MEDS: FERROUS SULFATE (325 MG) 325 MG/TAB TABLET PO SCH (08:12)
[2019-01-18] MEDS: CARVEDILOL 6.25 MG TABLET PO SCH ×2 (08:12→16:03)
[2019-01-18] MEDS: PANTOPRAZOLE 40 MG/PACK PACK PO SCH ×2 (08:12→21:11)
[2019-01-18] MEDS: FOLIC ACID 1 MG TABLET PO SCH (08:12)
[2019-01-18] MEDS: DULOXETINE HCL 20 MG CAPSULE.DR PO SCH ×2 (08:12→16:03)
[2019-01-18] MEDS ORDERED: ANESTHESIA TRAY IN PYXIS 1 EA TRAY MC ONE (08:13)
--- NOTE | 2019-01-18 09:15 | NUR ---
WOUND CARE CONSULT: PT OFF UNIT AT THIS TIME. WILL SEE PT PT CONDITION PERMITS.
--- NOTE | 2019-01-18 09:25 | NUR ---
DIRECTOR OF STRATEGIC SALES NOTES PT CAME BACK FROM SURGICAL UNIT,ALERT/ORIENTED X4.ON ROOM AIR,TOLERATING WELL.NO SOB AND ACUTE DISTRESS NOTED.NO PAIN NOTED FOR NOW.VITAL SIGNS CHECKED AN RECORDED.BP-146/65,P-59,R-20,TEM-98.8 AND O2-98%.NEW ORDER IS RESUME MEDICATIONS AND ADVANCE DIET TOLERATED.
[2019-01-18 12:00] VITALS: BP 131/78
[2019-01-18 14:01] LABS: BASOPHILS % (AUTO) 0.8 % (0.0-2.0); EOSINOPHILS % (AUTO) 6.5 % (0.0-6.0); HEMATOCRIT 28 % (39-51); LYMPHOCYTES % (AUTO) 20.3 % (20.0-44.0); MEAN CORPUSCULAR HGB CONC 32 g/dl (31.0-36.0); MEAN CORPUSCULAR VOLUME 80 fL (80-96); MONOCYTES # (AUTO) 0.5 /CMM (0.1-1.30); MONOCYTES % (AUTO) 11.1 % (2.0-12.0); NEUTROPHILS % (AUTO) 61.3 % (43.0-81.0); PLATELET COUNT (AUTO) 175 /CMM (150-450); RED BLOOD CELL COUNT(AUTO) 3.53 MIL/uL (4.5-6.0); WHITE BLOOD COUNT (AUTO) 4.9 K/uL (4.3-11.0)
[2019-01-18 14:12] LABS: CALCIUM, SERUM 7.9 mg/dL (8.5-10.1); CARBON DIOXIDE 21 mmol/L (21-32); CHLORIDE 109 mmol/L (98-107); CREATININE 1.5 mg/dL (0.6-1.3); GLUCOSE 140 mg/dL (74-106); POTASSIUM 4.2 mmol/L (3.5-5.1); SODIUM SERUM 140 mmol/L (136-145); UREA NITROGEN, BLOOD 22 mg/dL (7-18)
[2019-01-18 14:52] LABS: THYROID STIMULATING HORMONE 0.7 uIU/mL (0.358-3.74)
[2019-01-18 16:00] VITALS: BP 145/61
--- NOTE | 2019-01-18 18:38 | NUR ---
SHACKLER CLOSING NOTES PT IS LYING ON BED HAVING DINNER.ALERT/ORIENTED X4.IV LINE IS IN PLACE WITH IV FLUIDS RUNNING.FAMILY IS AT BEDSIDE.ALL DUE MEDS ARE GIVEN.RESPIRATION IS EVEN AND NONLABORED.ENDORSED TO CONSTRUCTION SITE MANAGER RN FOR WILIAN.
[2019-01-18 20:00] VITALS: BP 146/65
--- NOTE | 2019-01-18 20:20 | NUR ---
MS RN OPENING NOTES RECEIVED REPORT FROM MARIA INES PARSON. PATIENT A/A/O X4, ABLE TO MAKE NEEDS KNOWN. BREATHING EVEN & UNLABORED, TOLERATING ROOM AIR. DENIES ANY SOB OR DIFFICULTY BREATHING. RADIAL PULSES PRESENT. LEFT AC IV #18 & RIGHT WRIST IV #20 INTACT & PATENT W/ DRESSING CDI & IVF NS INFUSING WELL @ 50 ML/HR & SANDOSTATIN @ 25 MCG/HR. DENIES ANY PAIN OR DISCOMFORT @ THIS TIME. SAFETY MEASURES IN PLACE W/ SIDE RAILS UP & BED ALARM ON. CALL LIGHT PLACE WITHIN REACH & INSTRUCTED TO CALL FOR ASSISTANCE. WILL CONTINUE TO MONITOR.
[2019-01-19 04:00] VITALS: BP 141/64
[2019-01-19] MEDS: IV NS 0.9% 1,000 ML IV PRN (04:06)
[2019-01-19 06:53] LABS: EOSINOPHILS % (AUTO) 6.8 % (0.0-6.0); HEMATOCRIT 27 % (39-51); HEMOGLOBIN 8.4 g/dL (13.5-17.5); LYMPHOCYTES # (AUTO) 1.2 /CMM (0.8-4.8); LYMPHOCYTES % (AUTO) 25.7 % (20.0-44.0); MEAN CORPUSCULAR HGB CONC 32 g/dl (31.0-36.0); MEAN CORPUSCULAR VOLUME 80 fL (80-96); MONOCYTES # (AUTO) 0.6 /CMM (0.1-1.30); MONOCYTES % (AUTO) 12.6 % (2.0-12.0); NEUTROPHILS # (AUTO) 2.5 /CMM (1.8-8.9); NEUTROPHILS % (AUTO) 53.9 % (43.0-81.0); PLATELET COUNT (AUTO) 162 /CMM (150-450); RED BLOOD CELL COUNT(AUTO) 3.32 MIL/uL (4.5-6.0); WHITE BLOOD COUNT (AUTO) 4.7 K/uL (4.3-11.0)
--- NOTE | 2019-01-19 07:05 | NUR ---
COMMUNICATIONS EQUIPMENT OPERATOR OPENING NOTES RECEIVED REPORT FROM PROTEIN CHEMIST RN. PATIENT A/O X4, ABLE TO MAKE NEEDS KNOWN. BREATHING EVEN & UNLABORED, TOLERATING ROOM AIR. DENIES ANY SOB OR DIFFICULTY BREATHING. RADIAL PULSES PRESENT. LEFT AC IV #18 & RIGHT WRIST IV #20 INTACT & PATENT W/ DRESSING CDI & IVF NS INFUSING WELL @ 50 ML/HR & SANDOSTATIN @ 25 MCG/HR. DENIES ANY PAIN OR DISCOMFORT @ THIS TIME. SAFETY MEASURES IN PLACE W/ SIDE RAILS UP & BED ALARM ON. CALL LIGHT PLACE WITHIN REACH & INSTRUCTED TO CALL FOR ASSISTANCE. WILL CONTINUE TO MONITOR.
[2019-01-19 07:19] LABS: CALCIUM, SERUM 7.8 mg/dL (8.5-10.1); CARBON DIOXIDE 21 mmol/L (21-32); CHLORIDE 109 mmol/L (98-107); CREATININE 1.3 mg/dL (0.6-1.3); GLUCOSE 79 mg/dL (74-106); POTASSIUM 4.7 mmol/L (3.5-5.1); SODIUM SERUM 139 mmol/L (136-145); UREA NITROGEN, BLOOD 18 mg/dL (7-18)
[2019-01-19 08:00] VITALS: BP_SYST 100; BP_SYST 130; BP_DIAS 70; BP_DIAS 80
[2019-01-19 08:06] LABS: IMMUNOGLOBULIN A, SERUM 346 mg/dL (61-437); IMMUNOGLOBULIN G, SERUM 980 mg/dL (700-1600); IMMUNOGLOBULIN M, SERUM 107 mg/dL (15-143)
[2019-01-19] MEDS: DULOXETINE HCL 20 MG CAPSULE.DR PO SCH ×2 (08:38→16:55)
[2019-01-19] MEDS: SUCRALFATE 1 G TABLET PO SCH ×3 (08:38→16:56)
[2019-01-19] MEDS: FOLIC ACID 1 MG TABLET PO SCH (08:38)
[2019-01-19] MEDS: FERROUS SULFATE (325 MG) 325 MG/TAB TABLET PO SCH (08:38)
[2019-01-19] MEDS: CARVEDILOL 6.25 MG TABLET PO SCH ×2 (08:39→16:54)
[2019-01-19] MEDS: PANTOPRAZOLE 40 MG/PACK PACK PO SCH (08:39)
[2019-01-19] MEDS: LEVOTHYROXINE SODIUM 25 MCG TABLET PO SCH (08:39)
[2019-01-19] MEDS: GUAIFENESIN/D-METHORPHAN HB 5 ML UDC PO PRN (09:18)
--- NOTE | 2019-01-19 15:34 | NUR ---
PT REFUSED TO GO OVER DISCHARGE INSTRUCTIONS STATES HE ALREADY HAS LOTS OF THEM AT HOME. PT DID ALLOW FOR PRESCRIPTION EDUCATION AND DIET EDUCATION AND THAN PROCEED TO STATE HE WAS TIRED AND WANTS TO BE LET ALONE. GIRLFRIEND WILL BE PICKING HIM UP. IS UNSURE OF TIME.
[2019-01-19 16:00] VITALS: BP 133/76
[2019-01-19 16:54] VITALS: BP 133/76
--- NOTE | 2019-01-19 17:07 | NUR ---
D/C NOTES PT DENIED ANY PAIN OR SOB AT TIME OF DISCHARGE. BELONGING LIST SIGNED AND GIVEN TO PT. PT REFUSED PHOTOS TO BE TAKEN STATES THAT HE JUST WANTS TO GO HOME. PT REFUSED TO GO OVER EXITCARE PACK. PT STATES HE HAS ENOUGH OF THAT STUFF AT HOME. PT REFUSED ALL AFTERNOON MEDS. PT WAS ESCORTED WITH HIS GIRLFRIEND AND TAKEN OUT BY PT'S OWN WHEELCHAIR.
[2019-01-21 09:11] LABS: *SPE A/G RATIO 1.1 (0.7-1.7); *SPE ALBUMIN 3.1 g/dL (2.9-4.4); *SPE ALPHA-1-GLOBULIN 0.2 g/dL (0.0-0.4); *SPE ALPHA-2-GLOBULIN 0.6 g/dL (0.4-1.0); *SPE GLOBULIN, TOTAL 2.8 g/dL (2.2-3.9); *SPE M-SPIKE Not Observed g/dL (Not Observed)
== END 2019-01-19 17:00 | disposition home or self-care (01) | DRG 368 ==
LOC: ER 17:26 → TELE1 19:47 → MEDSG1 01-18 13:35
PROVIDERS: ADMIT Nurse Practitioner Acute Care; ATTEND Nurse Practitioner Acute Care
PROC: 30233N1 Transfusion of Nonautologous Red Blood Cells into Peripheral Vein, Percutaneous Approach (ICD-10-PCS; 2019-01-16)
PROC: 0DB68ZX Excision of Stomach, Via Natural or Artificial Opening Endoscopic, Diagnostic (ICD-10-PCS; principal; 2019-01-18)
PROC: 0DJD8ZZ Inspection of Lower Intestinal Tract, Via Natural or Artificial Opening Endoscopic (ICD-10-PCS; 2019-01-18)
DX: I85.00 Esophageal varices without bleeding (principal); N17.0 Acute kidney failure with tubular necrosis; K25.4 Chronic or unspecified gastric ulcer with hemorrhage; E44.0 Moderate protein-calorie malnutrition; D62 Acute posthemorrhagic anemia; R18.8 Other ascites; K76.6 Portal hypertension; M48.56XA Collapsed vertebra, not elsewhere classified, lumbar region, initial encounter for fracture; E03.9 Hypothyroidism, unspecified; K21.0 Gastro-esophageal reflux disease with esophagitis; I25.10 Atherosclerotic heart disease of native coronary artery without angina pectoris; Z96.643 Presence of artificial hip joint, bilateral; D50.9 Iron deficiency anemia, unspecified; Z96.653 Presence of artificial knee joint, bilateral; Z96.641 Presence of right artificial hip joint; G89.4 Chronic pain syndrome; Z95.810 Presence of automatic (implantable) cardiac defibrillator; Z87.11 Personal history of peptic ulcer disease; G47.00 Insomnia, unspecified; K31.9 Disease of stomach and duodenum, unspecified; Z79.899 Other long term (current) drug therapy; I11.0 Hypertensive heart disease with heart failure; I50.9 Heart failure, unspecified; G62.9 Polyneuropathy, unspecified; K44.9 Diaphragmatic hernia without obstruction or gangrene; K31.89 Other diseases of stomach and duodenum
CPT/HCPCS: 36415; 80048-TC; 80061-TC; 80076-TC; 82272-TC; 82728-TC; 82784; 83540-TC; 83735-TC; 84100-TC; 84155; 84165; 84439-TC; 84443-TC; 85025-TC; 85730-TC; 86334; 86850-TC; 86921-TC; 87081-TC; 88305-TC; 88313-TC; 88342; 97116-TC; 97530-TC; A4216; A6402; C9113; G0378; J2270; J2354; J2704; J7030; J7050; P9016-BL

== ENCOUNTER 2019-02-05 09:46 | Outpatient (CLI) | payer MEDICARE ==
[~2019-02-05 09:46] MED LIST changes: -CARV6.252 PO; -DULO20CA18 PO; +DULO20CA19 PO; -OMEP20TA20 PO; -TRAM50TA2 PO; -TRAZ-182 PO
[2019-02-05 12:34] LABS: ALANINE AMINOTRANSFERASE 17 U/L (12-78); ALBUMIN 2.9 g/dL (3.4-5.0); ALKALINE PHOSPHATASE 93 U/L (46-116); ASPARTATE AMINOTRANSFERASE 27 U/L (15-37); BILIRUBIN,TOTAL 0.3 mg/dL (0.2-1.0); CALCIUM, SERUM 8.5 mg/dL (8.5-10.1); CARBON DIOXIDE 20 mmol/L (21-32); CHLORIDE 111 mmol/L (98-107); CREATININE 1.6 mg/dL (0.6-1.3); GLUCOSE 117 mg/dL (74-106); POTASSIUM 3.9 mmol/L (3.5-5.1); SODIUM SERUM 142 mmol/L (136-145); TOTAL PROTEIN, SERUM 6.4 g/dL (6.4-8.2); UREA NITROGEN, BLOOD 31 mg/dL (7-18)
[2019-02-05 13:30] LABS: BASOPHILS % (AUTO) 0.8 % (0.0-2.0); EOSINOPHILS % (AUTO) 9.7 % (0.0-6.0); HEMATOCRIT 27 % (39-51); HEMOGLOBIN 8.7 g/dL (13.5-17.5); LYMPHOCYTES # (AUTO) 1.4 /CMM (0.8-4.8); LYMPHOCYTES % (AUTO) 35.4 % (20.0-44.0); MEAN CORPUSCULAR HGB CONC 32 g/dl (31.0-36.0); MEAN CORPUSCULAR VOLUME 82 fL (80-96); MONOCYTES # (AUTO) 0.5 /CMM (0.1-1.30); MONOCYTES % (AUTO) 13.1 % (2.0-12.0); NEUTROPHILS # (AUTO) 1.6 /CMM (1.8-8.9); PLATELET COUNT (AUTO) 159 /CMM (150-450); RED BLOOD CELL COUNT(AUTO) 3.34 MIL/uL (4.5-6.0); WHITE BLOOD COUNT (AUTO) 3.9 K/uL (4.3-11.0)
[2019-02-07 14:07] LABS: BETA-2 MICROGLOBULIN, SERUM 4.6 mg/L (0.6-2.4)
== END 2019-02-05 23:59 | disposition home or self-care (01) ==
LOC: LAB 09:46
PROVIDERS: ATTEND Internal Medicine Hematology & Oncology
DX: C90.00 Multiple myeloma not having achieved remission (principal); D47.2 Monoclonal gammopathy
CPT/HCPCS: 36415; 77075-TC; 80053-TC; 82232; 85025-TC; 85730-TC

== ENCOUNTER 2019-11-14 10:34 | Inpatient (IN) | payer MEDICARE, OTHER ==
[~2019-11-14] VITALS: Ht 170.2 cm; Wt 59.4 kg
[~2019-11-14 10:34] MED LIST changes: -HYDR-3026 PO; +HYDR-500 PO; +PANTOPRAZOLE 40 MG TABLET.DR PO SCH
--- NOTE | 2019-11-14 10:40 | NUR ---
PT BIB FAMILY C/O UPPER ABDOMINAL PAIN X 2 WEEKS, DENIES N/V/D, PT IS AAOX4, NOT IN RESPIRATORY DISTRESS, HOOKED TO MONITOR, KEPT RESTED AND COMFORTABLE, WILL CONTINUE TO MONITOR.
--- NOTE | 2019-11-14 10:43 | NUR ---
SEEN AND EXAMINED BY .
--- NOTE | 2019-11-14 11:05 | NUR ---
ER PHLEB AT BEDSIDE FOR BLOOD DRAW.
[2019-11-14 11:11] LABS: BASOPHILS # (AUTO) 0.1 /CMM (0.0-0.2); BASOPHILS % (AUTO) 1.1 % (0.0-2.0); EOSINOPHILS % (AUTO) 10.1 % (0.0-6.0); HEMATOCRIT 35 % (39-51); HEMOGLOBIN 11.7 g/dL (13.5-17.5); LYMPHOCYTES # (AUTO) 1.2 /CMM (0.8-4.8); MEAN CORPUSCULAR HGB CONC 33 g/dl (31.0-36.0); MEAN CORPUSCULAR VOLUME 93 fL (80-96); MONOCYTES # (AUTO) 0.5 /CMM (0.1-1.30); MONOCYTES % (AUTO) 8.7 % (2.0-12.0); NEUTROPHILS # (AUTO) 3.4 /CMM (1.8-8.9); NEUTROPHILS % (AUTO) 59.1 % (43.0-81.0); PLATELET COUNT (AUTO) 112 /CMM (150-450); WHITE BLOOD COUNT (AUTO) 5.7 K/uL (4.3-11.0)
[2019-11-14 11:18] LABS: CARBON DIOXIDE 24 mmol/L (21-32); CHLORIDE 108 mmol/L (98-107); CREATININE 1.4 mg/dL (0.6-1.3); GLUCOSE 97 mg/dL (74-106); POTASSIUM 5.4 mmol/L (3.5-5.1); SODIUM SERUM 138 mmol/L (136-145); UREA NITROGEN, BLOOD 31 mg/dL (7-18)
[2019-11-14 11:23] LABS: ALANINE AMINOTRANSFERASE 27 U/L (12-78); ALBUMIN 3.4 g/dL (3.4-5.0); ALKALINE PHOSPHATASE 98 U/L (46-116); ASPARTATE AMINOTRANSFERASE 35 U/L (15-37); BILIRUBIN,DIRECT 0.1 mg/dL (0.0-0.2); BILIRUBIN,TOTAL 0.4 mg/dL (0.2-1.0); LIPASE 60 U/L (73-393); TOTAL PROTEIN, SERUM 6.7 g/dL (6.4-8.2)
--- NOTE | 2019-11-14 11:35 | NUR ---
URINE SPECIMEN COLLECTED AND SENT TO LAB.
[2019-11-14 11:45] LABS: APPEARANCE,URINE Clear (CLEAR); BILIRUBIN,URINE Negative (NEGATIVE); BLOOD, URINE Negative Ery/uL (NEGATIVE); COLOR,URINE Yellow (YELLOW); KETONES,URINE Negative (NEGATIVE); LEUKOCYTE ESTERASE ,URINE Negative (NEGATIVE); NITRITE, URINE Negative (NEGATIVE); PH,URINE 5.5 (5.0-8.0); PROTEIN,URINE Negative (NEGATIVE); UGLUCOSE Negative (NEGATIVE); UROBILINOGEN,URINE 0.2 EU/dL (0.2)
--- NOTE | 2019-11-14 11:50 | NUR ---
PT IS WHEELED TO CT SCAN VIA [facility].
[2019-11-14] MEDS ORDERED: FAMOTIDINE/PF INJ 20 MG/2 ML VIAL IV ONE ×2 (12:22→12:30)
[2019-11-14] MEDS ORDERED: LIDOCAINE VISCOUS 2% UD 15 ML UDC ONE (12:22)
[2019-11-14] MEDS ORDERED: MAG HYDROX/AL HYDROX/SIMETH 30 ML UDC ONE (12:22)
[2019-11-14] MEDS ORDERED: LIDOCAINE VISCOUS 2% UD 15 ML UDC MM ONE (12:30)
[2019-11-14] MEDS ORDERED: MAG HYDROX/AL HYDROX/SIMETH 30 ML UDC PO ONE (12:30)
[2019-11-14] MEDS ORDERED: OMEP20CA15 PO (13:58)
[2019-11-14] MEDS ORDERED: ZOLP5TAB8 PO (13:58)
[2019-11-14] MEDS ORDERED: CARV6.252 PO (13:58)
--- NOTE | 2019-11-14 14:45 | NUR ---
COVID SWAB OBTAINED AND SENT TO LAB.
[2019-11-14 15:16] LABS: B-TYPE NATRIURETIC PEPTIDE 976 PG/ML (0-125)
[2019-11-14 16:00] VITALS: BP 138/88
[2019-11-14 16:03] LABS: D-DIMER 4.5 mg/L(FEU (0.17-0.50)
[2019-11-14 16:09] LABS: CREATINE KINASE, TOTAL 152 U/L (39-308); FERRITIN 42 ng/mL (8-388)
[2019-11-14 16:10] LABS: C-REACTIVE PROTEIN < 0.2 mg/dL (0.0-0.9)
--- NOTE | 2019-11-14 16:14 | NUR ---
AT BEDSIDE FOR EVAL.
--- NOTE | 2019-11-14 16:15 | NUR ---
REPORT GIVEN TO JASON PARSON FOR WILIAN.
--- NOTE | 2019-11-14 17:45 | NUR ---
HYDROELECTRIC MACHINERY MECHANIC HELPER NOTES RECEIVED PATIENT VIA TACO, ORIENTED TO ROOM, CALL LIGHT AND UNIT. NO SOB NOTED. DENIES ANY C/O PAIN NOR DISCOMFORT AT THIS TIME. ALERT AND ORIENTED X4. AMBULATORY WITH STEADY GAIT. PATIENT REFUSED SKIN CHECK AT THIS TIME. ON TELE MONITORING AV PACIN. BED IN LOWEST POSITION, LOCKED. CALL LIGHT WITHIN REACH. ABLE TO VERBALIZE NEEDS.
[2019-11-14] MEDS ORDERED: IV NS 0.9% 1,000 ML IV PRN (18:24)
[2019-11-14] MEDS ORDERED: HYOSCYAMINE SULFATE 0.125 MG TAB.SUBL SL PRN (18:30)
[2019-11-14] MEDS ORDERED: ONDANSETRON HCL/PF 4 MG/2 ML VIAL IVP PRN (18:30)
[2019-11-14] MEDS ORDERED: Z GUARD REMEDY 2 OZ OINT TP PRN (18:30)
[2019-11-14] MEDS: SUCRALFATE 1 G/10 ML UDC PO SCH (19:16)
--- NOTE | 2019-11-14 19:30 | NUR ---
ORAL HYGIENIST OPENING NOTE RECEIVED PATIENT IN BED. A/OX4. TOLERATING ROOM AIR. RR EVEN AND UNLABORED. NO S/S SOB NOTED. NO C/O PAIN AT THIS TIME. EXTERNAL TELE MONITOR READS SR, AV PACING HR 80. IN NO APPARENT DISTRESS. IV ACCESS IN RAC#18 PATENT AND SALINE LOCKED. BED IS LOW AND LOCKED, HOB ELEVATED IN SEMI FOWLERS, SIDE RAILS UP X2, CALL LIGHT WITHIN REACH. WILL CONTINUE TO MONITOR.
--- NOTE | 2019-11-14 19:30 | NUR ---
HOSPITAL HOUSEKEEPER NOTES ALERT AND ORIENTED X4. NO S/S OF RESPIRATORY DISTRESS. DENIES ANY C/O PAIN NOR DISCOMFORT AT THIS TIME. DENIES ANY C/O ABD PAIN AT THIS TIME. PER PATIENT HAD A BM AND HAD PASSED GAS. BED IN LOWEST POSITION, LOCKED. CALL LIGHT WITHIN REACH. ABLE TO VERBALIZE NEEDS. IN NO APPARENT DISTRESS
[2019-11-14 20:00] VITALS: BP 144/68
[2019-11-14 20:05] VITALS: BP 144/68
[2019-11-14] MEDS ORDERED: POLYETHYLENE GLYCOL 3350 17 GM POWD.PACK PO SCH ×2 (21:00→22:00)
[2019-11-14] MEDS: PANTOPRAZOLE 40 MG VIAL IV SCH (21:25)
[2019-11-14] MEDS ORDERED: ZOLPIDEM TARTRATE 5 MG TABLET PO PRN (22:00)
[2019-11-14] MEDS: ACETAMINOPHEN 325 MG TABLET PO PRN (23:03)
--- NOTE | 2019-11-14 23:03 | NUR ---
CRABBING MACHINE OPERATOR NOTE ADMINISTERED PRN TYLENOL 650MG FOR PAIN IN RIGHT KNEE. ADMINISTERED PRN AMBIEN 5 MG PER PATIENT REQUEST FOR SLEEP. WILL CONTINUE TO MONITOR.
[2019-11-15] VITALS: BP 159/72
[2019-11-15 01:11] VITALS: BP 159/72
[2019-11-15 04:28] VITALS: BP 151/72
[2019-11-15] MEDS: SUCRALFATE 1 G/10 ML UDC PO SCH ×3 (06:35→16:53)
[2019-11-15 06:47] LABS: BASOPHILS % (AUTO) 0.9 % (0.0-2.0); EOSINOPHILS % (AUTO) 11.9 % (0.0-6.0); HEMATOCRIT 34 % (39-51); HEMOGLOBIN 11.7 g/dL (13.5-17.5); LYMPHOCYTES # (AUTO) 1.2 /CMM (0.8-4.8); LYMPHOCYTES % (AUTO) 26.3 % (20.0-44.0); MEAN CORPUSCULAR HGB CONC 34 g/dl (31.0-36.0); MEAN CORPUSCULAR VOLUME 91 fL (80-96); MONOCYTES # (AUTO) 0.4 /CMM (0.1-1.30); MONOCYTES % (AUTO) 8.6 % (2.0-12.0); NEUTROPHILS # (AUTO) 2.5 /CMM (1.8-8.9); NEUTROPHILS % (AUTO) 52.3 % (43.0-81.0); PLATELET COUNT (AUTO) 102 /CMM (150-450); RED BLOOD CELL COUNT(AUTO) 3.77 MIL/uL (4.5-6.0); WHITE BLOOD COUNT (AUTO) 4.7 K/uL (4.3-11.0)
--- NOTE | 2019-11-15 06:49 | NUR ---
DRAW PRESS OPERATOR CLOSING NOTE PATIENT IN BED. A/OX4. REMAINS TOLERATING ROOM AIR. RR EVEN AND UNLABORED. NO SOB NOTED. MANAGED PAIN WITH TYLENOL. REQUESTING 10MG OF AMBIEN D/T CONTINUOUSLY WAKING UP THROUGHOUT THE NIGHT. WILL ENDORSE TO AM SHIFT. EXTERNAL TELE MONITOR READS SR, AV PACING HR 80. NO DISTRESS NOTED. IV ACCESS MAINTAIN IN RAC#18 PATENT AND SALINE LOCKED. BED REMAINS LOW AND LOCKED, HOB ELEVATED IN SEMI FOWLERS, SIDE RAILS UP X2, CALL LIGHT WITHIN REACH. WILL ENDORSE TO NEXT SHIFT.
[2019-11-15 07:22] LABS: CHOLESTEROL 126 mg/dL (<200); HDL CHOLESTEROL 43 mg/dL (40-60); LDL 70 mg/dL (0-99); THYROID STIMULATING HORMONE 3.415 uIU/mL (0.358-3.74); TRIGLYCERIDES 71 mg/dL (30-150)
[2019-11-15 07:23] LABS: IRON, SERUM 83 ug/dl (50-175); TOTAL IRON BINDING CAPACITY 316 ug/dl (250-450)
[2019-11-15 07:24] LABS: ALANINE AMINOTRANSFERASE 24 U/L (12-78); ALBUMIN 3.1 g/dL (3.4-5.0); ALKALINE PHOSPHATASE 90 U/L (46-116); ASPARTATE AMINOTRANSFERASE 33 U/L (15-37); BILIRUBIN,TOTAL 0.4 mg/dL (0.2-1.0); CALCIUM, SERUM 8.4 mg/dL (8.5-10.1); CARBON DIOXIDE 20 mmol/L (21-32); CHLORIDE 109 mmol/L (98-107); CREATININE 1.4 mg/dL (0.6-1.3); GLUCOSE 87 mg/dL (74-106); PHOSPHORUS 3.6 mg/dL (2.5-4.9); POTASSIUM 4.9 mmol/L (3.5-5.1); SODIUM SERUM 140 mmol/L (136-145); TOTAL PROTEIN, SERUM 6.1 g/dL (6.4-8.2); UREA NITROGEN, BLOOD 28 mg/dL (7-18)
[2019-11-15 08:00] VITALS: BP 145/73
--- NOTE | 2019-11-15 08:00 | NUR ---
PHARMACY TECH CUSTOMER SERVICE NOTES PATIENT IN BED RESTING NO SOB OR ACUTE DISTRESS NOTED. PATIENT ALERT, ORIENTED X4. PERIPHERAL IV INTACT PATENT. BED IN LOW POSITION, CALL LIGHT WITHIN REACH. WILL CONTINUE TO MONITOR.
[2019-11-15] MEDS: PANTOPRAZOLE 40 MG VIAL IV SCH (08:33)
--- NOTE | 2019-11-15 08:46 | NUR ---
WOUND CARE CONSULT: REVIEWED NURSING DOCUMENTATION INCLUDING PHOTOS AND CHART. PER NURSING STAFF, PT IS AMBULATORY AND CONTINENT. SOME SKIN DISCOLORATION/SCARRING NOTED IN ADMISSION PHOTOS OF BACK. WILL SEE PRN. MEKHI SCORE IS 20.
[2019-11-15] MEDS ORDERED: CARVEDILOL 6.25 MG TABLET PO SCH (09:00)
[2019-11-15] MEDS ORDERED: DULOXETINE HCL 20 MG CAPSULE.DR PO SCH (09:00)
[2019-11-15] MEDS: ACETAMINOPHEN 325 MG TABLET PO PRN (09:46)
[2019-11-15 12:00] VITALS: BP 137/71
[2019-11-15 16:00] VITALS: BP 138/76
[2019-11-15] MEDS ORDERED: HYOS-28 SL (16:51)
[2019-11-15] MEDS ORDERED: SUCR1ORA4 PO (16:51)
[2019-11-15] MEDS ORDERED: PANT40TA2 PO (16:51)
--- NOTE | 2019-11-15 19:00 | NUR ---
MS RN NOTES PATIENT DISCHARGED HOME IN STABLE CONDITION. DISCHARGE TEACHING PROVIDED VERBALIZED UNDERSTANDING. CALLED PHARMACY CONFIRMED MEDICATIONS ARE READY FOR PATIENT. PERIPHERAL IV REMOVED WITH MINIMAL BLEEDING. DISCHARGE PROTOCOL FOLLOWED. ID BAND REMOVED. PATIENT REFUSED DISCHARGE PICTURES. PATIENT ESCORTED TO CAR.
== END 2019-11-15 19:00 | disposition home or self-care (01) | DRG 391 ==
LOC: ER 10:38 → TELE2 17:43
PROVIDERS: ADMIT Nurse Practitioner Acute Care; ATTEND Nurse Practitioner Acute Care
DX: K29.00 Acute gastritis without bleeding (principal); N17.0 Acute kidney failure with tubular necrosis; I13.0 Hypertensive heart and chronic kidney disease with heart failure and stage 1 through stage 4 chronic kidney disease, or unspecified chronic kidney disease; I50.42 Chronic combined systolic (congestive) and diastolic (congestive) heart failure; J98.11 Atelectasis; Z96.653 Presence of artificial knee joint, bilateral; Z96.641 Presence of right artificial hip joint; Z95.0 Presence of cardiac pacemaker; N18.9 Chronic kidney disease, unspecified; M19.90 Unspecified osteoarthritis, unspecified site; E03.9 Hypothyroidism, unspecified; G89.4 Chronic pain syndrome; Z79.899 Other long term (current) drug therapy; F32.9 Major depressive disorder, single episode, unspecified; I25.10 Atherosclerotic heart disease of native coronary artery without angina pectoris; E87.5 Hyperkalemia; D69.6 Thrombocytopenia, unspecified; K21.9 Gastro-esophageal reflux disease without esophagitis; K44.9 Diaphragmatic hernia without obstruction or gangrene; K59.00 Constipation, unspecified
CPT/HCPCS: 36415; 71045-TC; 80048-TC; 80053-TC; 80061-TC; 80076-TC; 81000-TC; 82550-TC; 82728-TC; 82962-TC; 83540-TC; 83605-TC; 83615-TC; 83690-TC; 83735-TC; 83880; 84100-TC; 84443-TC; 84484-TC; 85025-TC; 85378-TC; 85730-TC; 86140-TC; 87040-TC; 87081-TC; C9113; G0378; J3490; J7030

== ENCOUNTER 2020-02-22 18:01 | Emergency (ER) | payer MEDICARE, OTHER ==
[~2020-02-22] VITALS: Ht 170.2 cm; Wt 63.5 kg
[~2020-02-22 18:01] MED LIST changes: +CARV6.252 PO; -FERR325T23 PO; -HYDR-500 PO; +HYOS-28 SL; -LEVO25TA9 PO; +PANT40TA2 PO; -PANTOPRAZOLE 40 MG TABLET.DR PO SCH; +SUCR1ORA4 PO; +ZOLP5TAB8 PO
--- NOTE | 2020-02-22 18:16 | NUR ---
patient came in to the er c/o left shoulder pain denies injury or trauma. "I just want a shot of pain medication". On room air, breathing evenly and unlabored. Kept comfortable, will continue to monitor accordingly.
--- NOTE | 2020-02-22 18:21 | NUR ---
VICKY NORTON AT BEDSIDE FOR EVAL.
[2020-02-22] MEDS ORDERED: KETOROLAC TROMETHAMINE 15 MG/ML VIAL ONE (18:25)
[2020-02-22] MEDS ORDERED: KETOROLAC TROMETHAMINE INJ 30 MG/ML VIAL IM ONE (18:30)
[2020-02-22 18:32] VITALS: BP 112/62
--- NOTE | 2020-02-22 18:32 | NUR ---
Patient discharged to home in stable condition. Written and verbal after care instructions given. Patient verbalizes understanding of instruction.
== END 2020-02-22 18:32 | disposition home or self-care (01) ==
LOC: ER 18:08
DX: G89.29 Other chronic pain (principal); M25.512 Pain in left shoulder; I10 Essential (primary) hypertension; M19.90 Unspecified osteoarthritis, unspecified site; E03.9 Hypothyroidism, unspecified; Z95.0 Presence of cardiac pacemaker; Z98.890 Other specified postprocedural states; Z79.899 Other long term (current) drug therapy
CPT/HCPCS: 96372; 99283; J1885

== ENCOUNTER 2020-02-23 18:48 | Emergency (ER) | payer MEDICARE, OTHER ==
[~2020-02-23] VITALS: Ht 170.2 cm; Wt 63.5 kg
[2020-02-23 19:04] VITALS: BP 135/81
--- NOTE | 2020-02-23 19:12 | NUR ---
REPORT RECEIVED FROM EB JERONIMO
--- NOTE | 2020-02-23 19:13 | NUR ---
DR SERRANO AT BEDSIDE FOR EVAL
[2020-02-23] MEDS ORDERED: KETOROLAC TROMETHAMINE INJ 30 MG/ML VIAL ONE (19:27)
[2020-02-23] MEDS ORDERED: KETOROLAC TROMETHAMINE INJ 30 MG/ML VIAL IM ONE (19:30)
--- NOTE | 2020-02-23 19:57 | NUR ---
Patient discharged to home in stable condition. Written and verbal after care instructions given. Patient verbalizes understanding of instruction.pt. ambulatory with a steady gait
== END 2020-02-23 19:58 | disposition home or self-care (01) ==
LOC: ER 18:48
DX: G62.9 Polyneuropathy, unspecified (principal); G89.29 Other chronic pain; I10 Essential (primary) hypertension; E03.9 Hypothyroidism, unspecified; Z95.0 Presence of cardiac pacemaker; Z98.890 Other specified postprocedural states; Z96.653 Presence of artificial knee joint, bilateral; Z96.641 Presence of right artificial hip joint; Z79.899 Other long term (current) drug therapy
CPT/HCPCS: 96372; 99283; J1885

== ENCOUNTER 2020-04-16 09:18 | Emergency (ER) | payer MEDICARE, OTHER ==
[~2020-04-16] VITALS: Ht 170.2 cm; Wt 54.4 kg
[2020-04-16 09:50] VITALS: BP 132/64
[2020-04-16] MEDS ORDERED: KETOROLAC TROMETHAMINE INJ 30 MG/ML VIAL ONE (10:24)
[2020-04-16] MEDS ORDERED: diphenhydrAMINE HCL 50 MG/ML VIAL ONE (10:26)
[2020-04-16] MEDS ORDERED: KETOROLAC TROMETHAMINE INJ 60 MG/2 ML VIAL IM ONE (10:30)
[2020-04-16] MEDS: KETOROLAC TROMETHAMINE INJ 30 MG/ML VIAL IM ONE (10:32)
[2020-04-16] MEDS: diphenhydrAMINE HCL 50 MG/ML VIAL IM ONE (10:37)
--- NOTE | 2020-04-16 11:04 | NUR ---
Patient assisted to WC patient alert awake nondistress agrees to see PMD in 2 days verbalized understanding .
--- NOTE | 2020-04-16 11:04 | NUR ---
Patient discharged to home in stable condition. Written and verbal after care instructions given. Patient verbalizes understanding of instruction.
== END 2020-04-16 11:07 | disposition home or self-care (01) ==
LOC: ER 09:25
DX: G89.29 Other chronic pain (principal); M25.512 Pain in left shoulder; L29.9 Pruritus, unspecified; I10 Essential (primary) hypertension; E03.9 Hypothyroidism, unspecified; Z95.0 Presence of cardiac pacemaker; Z98.890 Other specified postprocedural states; Z96.641 Presence of right artificial hip joint; Z96.653 Presence of artificial knee joint, bilateral; Z79.899 Other long term (current) drug therapy
CPT/HCPCS: 96372 ×2; 99284; J1200; J1885

== ENCOUNTER 2020-06-01 03:13 | Inpatient (IN) | payer MEDICARE, OTHER ==
[~2020-06-01] VITALS: Ht 170.2 cm; Wt 53.1 kg
--- NOTE | 2020-06-01 03:20 | NUR ---
PT BIBS FOR C/O LOWER ABD PAIN SINCE "AFTERNOON" -N/V/D. PT AAOX4, VSS, RESPIRATIONS EVEN AND UNLABORED ON RA W/ NAD NOTED. PT CONNECTED TO THE MONITOR AND POX
[2020-06-01] MEDS ORDERED: MAG HYDROX/AL HYDROX/SIMETH 30 ML UDC ONE (03:49)
[2020-06-01] MEDS ORDERED: LIDOCAINE VISCOUS 2% UD 15 ML UDC ONE (03:49)
[2020-06-01] MEDS ORDERED: MORPHINE SULFATE INJ 2 MG/ML DISP.SYRIN ONE (03:50)
[2020-06-01] MEDS ORDERED: FAMOTIDINE/PF INJ 20 MG/2 ML VIAL IV ONE ×2 (03:50→04:00)
[2020-06-01 03:57] LABS: BASOPHILS # (AUTO) 0.1 /CMM (0.0-0.2); BASOPHILS % (AUTO) 1.5 % (0.0-2.0); EOSINOPHILS % (AUTO) 1.5 % (0.0-6.0); HEMATOCRIT 32 % (39-51); HEMOGLOBIN 10.4 g/dL (13.5-17.5); LYMPHOCYTES # (AUTO) 1.1 /CMM (0.8-4.8); LYMPHOCYTES % (AUTO) 17.8 % (20.0-44.0); MEAN CORPUSCULAR HGB CONC 33 g/dl (31.0-36.0); MEAN CORPUSCULAR VOLUME 95 fL (80-96); MONOCYTES # (AUTO) 0.3 /CMM (0.1-1.30); MONOCYTES % (AUTO) 5.6 % (2.0-12.0); NEUTROPHILS # (AUTO) 4.4 /CMM (1.8-8.9); NEUTROPHILS % (AUTO) 73.6 % (43.0-81.0); PLATELET COUNT (AUTO) 166 /CMM (150-450); RED BLOOD CELL COUNT(AUTO) 3.32 MIL/uL (4.5-6.0)
[2020-06-01] MEDS ORDERED: LIDOCAINE VISCOUS 2% UD 15 ML UDC MM ONE (04:00)
[2020-06-01] MEDS ORDERED: MORPHINE SULFATE INJ 2 MG/ML DISP.SYRIN IV ONE (04:00)
[2020-06-01] MEDS ORDERED: MAG HYDROX/AL HYDROX/SIMETH 30 ML UDC PO ONE (04:00)
[2020-06-01 04:06] LABS: CALCIUM, SERUM 8.3 mg/dL (8.5-10.1); CARBON DIOXIDE 23 mmol/L (21-32); CHLORIDE 112 mmol/L (98-107); CREATININE 1.4 mg/dL (0.6-1.3); GLUCOSE 165 mg/dL (74-106); POTASSIUM 3.5 mmol/L (3.5-5.1); SODIUM SERUM 146 mmol/L (136-145); UREA NITROGEN, BLOOD 41 mg/dL (7-18)
--- NOTE | 2020-06-01 04:07 | NUR ---
PT TAKEN TO RADIOLOGY FOR CT
[2020-06-01 04:11] LABS: ALANINE AMINOTRANSFERASE 25 U/L (12-78); ALKALINE PHOSPHATASE 215 U/L (46-116); ASPARTATE AMINOTRANSFERASE 38 U/L (15-37); BILIRUBIN,DIRECT 0.1 mg/dL (0.0-0.2); BILIRUBIN,TOTAL 0.4 mg/dL (0.2-1.0); LIPASE 175 U/L (73-393); TOTAL PROTEIN, SERUM 6.2 g/dL (6.4-8.2)
--- NOTE | 2020-06-01 04:15 | NUR ---
PT BACK FROM CT
--- NOTE | 2020-06-01 04:43 | NUR ---
CALLED [facility] FOR CT READ
[2020-06-01] MEDS ORDERED: IV NS 0.9% 1,000 ML BAG IV ONE (05:00)
[2020-06-01 05:18] LABS: BILIRUBIN,URINE NEGATIVE (NEGATIVE); BLOOD, URINE NEGATIVE Ery/uL (NEGATIVE); COLOR,URINE YELLOW (YELLOW); LEUKOCYTE ESTERASE ,URINE NEGATIVE (NEGATIVE); NITRITE, URINE NEGATIVE (NEGATIVE); PROTEIN,URINE 30 mg/dl (NEGATIVE); UGLUCOSE 100 MG/DL mg/dL (NEGATIVE); UROBILINOGEN,URINE 0.2 EU/dL (0.2)
[2020-06-01 05:24] LABS: RBC,URINE 0-2 /HPF (0-2); WBC,URINE 0-2 /HPF (0-3)
[2020-06-01 05:25] LABS: BACTERIA,URINE None seen /HPF (None Seen); SQUAMOUS EPITHELIAL CELL,UR Few /HPF (None Seen)
[2020-06-01] MEDS ORDERED: MAGNESIUM HYDROXIDE 30 ML UDC PO PRN (06:30)
[2020-06-01] MEDS ORDERED: MAG HYDROX/AL HYDROX/SIMETH 30 ML UDC PO PRN (06:30)
[2020-06-01] MEDS ORDERED: ONDANSETRON HCL/PF 4 MG/2 ML VIAL IVP PRN (06:30)
[2020-06-01] MEDS ORDERED: ACETAMINOPHEN 325 MG TABLET PO PRN (06:30)
[2020-06-01] MEDS ORDERED: HYOSCYAMINE SULFATE 0.125 MG TAB.SUBL SL PRN (06:30)
[2020-06-01] MEDS ORDERED: Z GUARD REMEDY 2 OZ OINT TP PRN (06:30)
--- NOTE | 2020-06-01 07:14 | NUR ---
REPORT GIVEN TO EB PATEL FOR WILIAN
--- NOTE | 2020-06-01 07:15 | NUR ---
RECEIVED REPORT FROM EB DELAROSA FOR WILIAN. PT IS AAOX3, NOT IN RESPIRATORY DISTRESS, V/S STABLE, KEPT RESTED AND COMFORTABLE. WILL CONTINUE TO MONITOR.
[2020-06-01] MEDS ORDERED: HYDR-3642 PO (08:18)
[2020-06-01] MEDS ORDERED: NAPR-1009 PO (08:18)
[2020-06-01] MEDS ORDERED: DEXL60CA3 PO (08:18)
[2020-06-01] MEDS ORDERED: CARV6.252 PO (08:21)
--- NOTE | 2020-06-01 08:48 | NUR ---
ROOM GIVEN 328-2
[2020-06-01] MEDS ORDERED: PANTOPRAZOLE 40 MG TABLET.DR PO SCH (09:00)
[2020-06-01] MEDS ORDERED: DULOXETINE HCL 20 MG CAPSULE.DR PO SCH (09:00)
[2020-06-01] MEDS ORDERED: SUCRALFATE 1 G/10 ML UDC PO SCH (09:00)
--- NOTE | 2020-06-01 09:43 | NUR ---
REPORT GIVEN CATALINO PARSON FOR WILIAN.
--- NOTE | 2020-06-01 09:45 | NUR ---
MS RN NOTES RECEIVED PATIENT FROM ER. ORIENTED TO ROOM. PATIENT IN BED CALL LIGHT WITHIN REACH. SAFETY MEASURES IN PLACE. PATIENT ALERT, ORIENTED X3. PERIPHERAL IV INTACT PATENT. PATIENT DENIES ANY PAIN OR DISCOMFORT. DENIES ANY NAUSEA. PATIENT SKIN IS INTACT WITH MULTIPLE BRUISES AND A SCAB ON LEFT ARM. PATIENT STATES HE LIVES WITH HIS GIRLFRIEND. HELPED PATIENT TO CALL HIS GIRLFRIEND. WILL CONTINUE TO MONITOR.
[2020-06-01] MEDS: IV NS 0.9% 1,000 ML IV PRN (10:04)
[2020-06-01] MEDS ORDERED: CARVEDILOL 6.25 MG TABLET PO SCH (11:01)
[2020-06-01] MEDS: CARVEDILOL 6.25 MG TABLET PO SCH ×3 (11:06→17:10)
[2020-06-01] MEDS ORDERED: hydrOXYzine 10 MG TABLET PO PRN (11:30)
[2020-06-01] MEDS ORDERED: PANTOPRAZOLE 40 MG TABLET.DR PO PRN (11:30)
[2020-06-01] MEDS ORDERED: NAPROXEN 500 MG TABLET PO PRN (11:30)
--- NOTE | 2020-06-01 15:53 | NUR ---
MS RN NOTES PATIENT REQUESTS TO HAVE PT EVAL. ORDERS OBTAINED FOR PT EVAL.
[2020-06-01 16:20] VITALS: BP 149/71
--- NOTE | 2020-06-01 18:28 | NUR ---
MS RN NOTES PATIENT IN BED RESTING NO SOB OR ACUTE DISTRESS NOTED. ALL DUE MEDICATIONS ADMINISTERED. ALL NEEDS MET. NO ACUTE CHANGES NOTED DURING SHIFT. WILL ENDORSE CARE TO PM SHIFT.
[2020-06-01 20:00] VITALS: BP 133/72
--- NOTE | 2020-06-01 20:00 | NUR ---
RN OPENING NOTE: Received report from AM nurse. Patient resting comfortably in bed. Patient awake, alert, and oriented x3. Able to make needs known. Patient denies pain or discomfort at this time. Patient breathing unlabored and even on room air. No SOB or acute respiratory distress noted. IV access on left forearm, patent, no redness, or infiltration. Safety precaution in place, bed is in the lowest level, bed is locked, alarm is on, side rails x2 are up, and call light is within reach. Will continue to monitor.
[2020-06-01] MEDS: HYDROCODONE/APAP 5/325MG TABLET PO PRN (20:50)
--- NOTE | 2020-06-01 20:50 | NUR ---
Patient complains of abdominal pain. Patient rates pain an 8 on a 0-10 numerical scale and describes pain as aching. Administered PRN [place] per MD order. Will continue to monitor.
[2020-06-01] MEDS: ZOLPIDEM TARTRATE 5 MG TABLET PO PRN (22:32)
--- NOTE | 2020-06-01 22:32 | NUR ---
Reassess pain. Patient verbalized reduction of pain and pain medication effectiveness.
--- NOTE | 2020-06-01 22:33 | NUR ---
Patient verbalized difficulty sleeping. Administered PRN ambien per MD order. Will continue to monitor.
[2020-06-02] MEDS: IV NS 0.9% 1,000 ML IV PRN (06:22)
--- NOTE | 2020-06-02 06:58 | NUR ---
RN CLOSING NOTE: Patient in bed resting comfortably. Patient even and unlabored with no signs of SOB or acute respiratory distress. Safety measure maintained, bed is in the lowest level, bed is locked, alarm is on, side rails x2 are up, and call light is within reach. Will endorse to next shift.
--- NOTE | 2020-06-02 07:30 | NUR ---
m/s varnish blender: initial assessment received pt in bed sounds asleep. no s/s of resp. distress noted. call light within reach. will continue to monitor.
[2020-06-02 07:39] LABS: BASOPHILS % (AUTO) 0.6 % (0.0-2.0); EOSINOPHILS % (AUTO) 3.1 % (0.0-6.0); HEMATOCRIT 33 % (39-51); HEMOGLOBIN 11.1 g/dL (13.5-17.5); LYMPHOCYTES % (AUTO) 20.6 % (20.0-44.0); MEAN CORPUSCULAR HGB CONC 33 g/dl (31.0-36.0); MEAN CORPUSCULAR VOLUME 94 fL (80-96); MONOCYTES # (AUTO) 0.4 /CMM (0.1-1.30); MONOCYTES % (AUTO) 7.6 % (2.0-12.0); NEUTROPHILS # (AUTO) 3.4 /CMM (1.8-8.9); NEUTROPHILS % (AUTO) 68.1 % (43.0-81.0); PLATELET COUNT (AUTO) 157 /CMM (150-450); RED BLOOD CELL COUNT(AUTO) 3.57 MIL/uL (4.5-6.0)
[2020-06-02 07:53] LABS: CALCIUM, SERUM 7.9 mg/dL (8.5-10.1); CREATININE 0.9 mg/dL (0.6-1.3); MAGNESIUM 2.4 mg/dL (1.8-2.4); PHOSPHORUS 2.2 mg/dL (2.5-4.9); POTASSIUM 3.9 mmol/L (3.5-5.1)
[2020-06-02 08:00] VITALS: BP 163/79
--- NOTE | 2020-06-02 08:45 | NUR ---
m/s resaw machine operator: cardio f/u seen by dr. dorsey with order. order acknowledged. no reported loose stool at this time. instructed to call for assistance.
[2020-06-02] MEDS: CARVEDILOL 6.25 MG TABLET PO SCH ×2 (08:47→16:56)
--- NOTE | 2020-06-02 10:00 | NUR ---
m/s water/wastewater engineer: notes pt easily irritable, does not want any questions ask about his living arrangement during physical therapy session. physical therapy at bedside for eval.
[2020-06-02] MEDS ORDERED: K PHOS NEUTRAL 250 MG TABLET PO ONE (11:00)
--- NOTE | 2020-06-02 12:30 | NUR ---
m/s gravity flow irrigator: notes pt had a normal bowel movement, unable to collect specimen for c-diff. no c/o diarrhea. instructed to call for assistance. will continue to monitor.
--- NOTE | 2020-06-02 14:00 | NUR ---
m/s assistant cook: notes pt sounds asleep. no distress noted. will continue to monitor.
[2020-06-02 16:00] VITALS: BP 120/54
--- NOTE | 2020-06-02 16:30 | NUR ---
m/s licensed direct entry midwife: md visit seen and examined by dr. connor with orders. orders acknowledged.
[2020-06-02] MEDS: HYDROCODONE/APAP 5/325MG TABLET PO PRN ×2 (16:56→23:33)
--- NOTE | 2020-06-02 16:56 | NUR ---
m/s hospitality house supervisor: notes c/o 01/23 generalized discomfort, more on back. medicated with norco 1 tab po as ordered. instructed to call for assistance. will continue to monitor.
--- NOTE | 2020-06-02 17:56 | NUR ---
m/s veterinary parasitologist: tape keller operator f/u seen by OCHOA ALEMAN with new orders. orders acknowledged. bean sprout laborer at bedside at this time. no c/o pain at this time. call light within reach.
[2020-06-02 18:58] LABS: IRON, SERUM 62 ug/dl (50-175); TOTAL IRON BINDING CAPACITY 213 ug/dl (250-450)
--- NOTE | 2020-06-02 19:08 | NUR ---
m/s bank operations officer: notes report given to adis (rn) for continuity of care.
[2020-06-02 19:12] LABS: FERRITIN 52 ng/mL (8-388)
--- NOTE | 2020-06-02 19:52 | NUR ---
RN OPENING NOTE: Patient in bed resting comfortably. Patient awake, alert, and oriented x 3. Able to make needs known. Patient breathing even and unlabored on room air. No SOB or acute respiratory distress noted. Noted IV access on left forearm 22 gauge, dressing not intact and leaking. Will insert new IV access and DC current access. Safety precaution is in place, bed is in the lowest level, bed is locked, alarm is on, side rails x2 are up, and call light is within reach. Will continue to monitor.
[2020-06-02 20:00] VITALS: BP 114/61
[2020-06-02 22:06] LABS: PROSTATE SPECIFIC ANTIGEN SCR 0.69 ng/mL (0.00-4.00)
[2020-06-02] MEDS: ZOLPIDEM TARTRATE 5 MG TABLET PO PRN (23:33)
--- NOTE | 2020-06-02 23:33 | NUR ---
Patient complains of aching abdominal pain. Patient rates pain an 8 on a 0-10 numerical scale. Administered PRN [address] per MD order. Will continue to monitor.
[2020-06-03] MEDS: ZOLPIDEM TARTRATE 5 MG TABLET PO PRN (00:19)
--- NOTE | 2020-06-03 00:20 | NUR ---
Patient verbalized difficulty sleeping. Administered PRN Ambien per MD order. Will continue to monitor.
--- NOTE | 2020-06-03 06:34 | NUR ---
RN CLOSING NOTE: Patient in bed resting comfortably. Patient breathing even and unlabored with no signs of SOB or acute respiratory distress. Safety measure maintained, bed is in the lowest level, bed is locked, alarm is on, side rails x2 are up, and call light is within reach. Will endorse to next shift.
--- NOTE | 2020-06-03 07:20 | NUR ---
MS RN NOTES PATIENT IN BED ALERT ORIENTED X 3. NO ACUTE DISTRESS NOTED. BREATHING UNLABORED. NO SOB NOTED. IV ACCESS PATENT AND INTACT, NO REDNESS NO SWELLING , NO BLEEDING NOTED. SAFETY MEASURES IN PLACE. CALL LIGHT WITHIN REACH. WILL CONTINUE TO MONITOR ACCORDINGLY
[2020-06-03 07:51] LABS: CREATININE 1.1 mg/dL (0.6-1.3); MAGNESIUM 2.3 mg/dL (1.8-2.4); PHOSPHORUS 2.2 mg/dL (2.5-4.9); POTASSIUM 3.8 mmol/L (3.5-5.1)
[2020-06-03 07:57] LABS: BASOPHILS % (AUTO) 0.7 % (0.0-2.0); HEMATOCRIT 33 % (39-51); HEMOGLOBIN 10.8 g/dL (13.5-17.5); LYMPHOCYTES # (AUTO) 1.1 /CMM (0.8-4.8); LYMPHOCYTES % (AUTO) 22.9 % (20.0-44.0); MEAN CORPUSCULAR HGB CONC 33 g/dl (31.0-36.0); MEAN CORPUSCULAR VOLUME 94 fL (80-96); MONOCYTES # (AUTO) 0.4 /CMM (0.1-1.30); MONOCYTES % (AUTO) 7.8 % (2.0-12.0); NEUTROPHILS # (AUTO) 3.2 /CMM (1.8-8.9); NEUTROPHILS % (AUTO) 65.6 % (43.0-81.0); PLATELET COUNT (AUTO) 162 /CMM (150-450); RED BLOOD CELL COUNT(AUTO) 3.48 MIL/uL (4.5-6.0); WHITE BLOOD COUNT (AUTO) 4.9 K/uL (4.3-11.0)
[2020-06-03 08:00] VITALS: BP 122/72
[2020-06-03] MEDS: CARVEDILOL 6.25 MG TABLET PO SCH ×2 (08:40→17:00)
[2020-06-03] MEDS: IV NS 0.9% 1,000 ML IV PRN (08:45)
[2020-06-03] MEDS ORDERED: CT SWABBABLE VALVE TRANS SET 1 EA INFUS.SET MC ONE (09:10)
[2020-06-03] MEDS ORDERED: IV NS 0.9% 250 ML IV ONE (09:10)
[2020-06-03] MEDS ORDERED: IOHEXOL-300 100 ML VIAL IV ONE (09:10)
[2020-06-03] MEDS ORDERED: K PHOS NEUTRAL 250 MG TABLET PO ONE (09:30)
[2020-06-03 11:06] LABS: OCCULT BLOOD STOOL NEGATIVE (NEGATIVE)
--- NOTE | 2020-06-03 19:00 | NUR ---
MS RN NOTES PATIENT IN BED ALERT ORIENTED X 3. NO ACUTE DISTRESS NOTED. BREATHING UNLABORED. NO SOB NOTED. IV ACCESS PATENT AND INTACT, NO REDNESS NO SWELLING , NO BLEEDING NOTED. NEEDS ATTENDED AND ANTICIPATED. SAFETY MEASURES IN PLACE. CALL LIGHT WITHIN REACH. WILL ENDORSE TO NIGHT NURSE FOR CONTINUITY OF CARE.
--- NOTE | 2020-06-03 19:30 | NUR ---
MS/RN OPENING NOTES RECEIVED PATIENT IN BED, RESTING. PATIENT IS ALERT AND ORIENTED X 3. PATIENT ON ROOM AIR, TOLERATING WELL. NO SIGNS OF SOB OR RESPIRATORY DISTRESS NOTED. PATIENT STATES NO PAIN AT THIS TIME. PATIENT LEFT FOREARM #20G IV RUNNING NS AT 100ML/HR. NO SIGNS OF DISTRESS NOTED. SAFETY MEASURES ARE IN PLACE, BED IS LOCKED AND PLACED IN THE LOW POSITION, SIDE RAILS UP X 2. CALL LIGHT IS WITHIN REACH. WILL MONITOR THROUGH OUT SHIFT.
[2020-06-03 20:00] VITALS: BP 108/76
[2020-06-03] MEDS: APIXABAN 5 MG TABLET PO SCH (20:00)
[2020-06-04] MEDS: ZOLPIDEM TARTRATE 5 MG TABLET PO PRN (00:54)
--- NOTE | 2020-06-04 00:55 | NUR ---
MS/RN NOTES PATIENT REQUESTING FOR SLEEPING AID. PATIENT IS NPO. NOTIFIED SURFACE SUPPLY BREATHING APPARATUS MALIK IF OK TO GIVE PO WITH SMALL AMOUNT OF WATER. SURFACE SUPPLY BREATHING APPARATUS MALIK OK TO GIVE PO WITH SMALL AMOUNT OF WATER. PATIENT GIVEN AMBIEN 5 MG PO.
[2020-06-04] MEDS: IV NS 0.9% 1,000 ML IV PRN (01:57)
--- NOTE | 2020-06-04 06:35 | NUR ---
MS/RN CLOSING NOTES PATIENT IN BED, RESTING. PATIENT IS ALERT AND ORIENTED X 3. PATIENT ON ROOM AIR, TOLERATING WELL. NO SIGNS OF SOB OR RESPIRATORY DISTRESS NOTED. PATIENT STATES NO PAIN AT THIS TIME. PATIENT LEFT FOREARM #20G IV RUNNING NS AT 100ML/HR. NO SIGNS OF DISTRESS NOTED. ALL NEEDS HAVE BEEN MET DURING SHIFT. SAFETY MEASURES ARE IN PLACE, BED IS LOCKED AND PLACED IN THE LOW POSITION, SIDE RAILS UP X 2. CALL LIGHT IS WITHIN REACH. WILL ENDORSE TO DAY SHIFT NURSE.
[2020-06-04 06:54] LABS: BASOPHILS % (AUTO) 0.5 % (0.0-2.0); EOSINOPHILS % (AUTO) 2.5 % (0.0-6.0); HEMATOCRIT 32 % (39-51); HEMOGLOBIN 10.7 g/dL (13.5-17.5); LYMPHOCYTES # (AUTO) 1.3 /CMM (0.8-4.8); LYMPHOCYTES % (AUTO) 23.4 % (20.0-44.0); MEAN CORPUSCULAR HGB CONC 33 g/dl (31.0-36.0); MEAN CORPUSCULAR VOLUME 93 fL (80-96); MONOCYTES # (AUTO) 0.4 /CMM (0.1-1.30); NEUTROPHILS # (AUTO) 3.6 /CMM (1.8-8.9); NEUTROPHILS % (AUTO) 65.6 % (43.0-81.0); PLATELET COUNT (AUTO) 155 /CMM (150-450); RED BLOOD CELL COUNT(AUTO) 3.45 MIL/uL (4.5-6.0); WHITE BLOOD COUNT (AUTO) 5.4 K/uL (4.3-11.0)
[2020-06-04 07:38] LABS: PHOSPHORUS 2.4 mg/dL (2.5-4.9); POTASSIUM 3.3 mmol/L (3.5-5.1)
--- NOTE | 2020-06-04 07:47 | NUR ---
MS PARSON OPEN NOTES PATIENT IS SLEEPING IN BED. WITH NO SIGNS OF DISTRESS IN ROOM AIR. IV L FA #22G INTACT RUNNING NS AT 100 ML/HR. NO COMPLAIN OF PAIN AT THIS TIME. PATIENT IS CURRENTLY NPO. CT WITH CONTRAST CONSENT IS SIGNED. SAFETY MEASURES ARE APPLIED, BED IS IN THE LOWEST POSITION, LOCKED, AND SIDE RAILS UP X 2. CALL LIGHT WITHIN REACH. WILL CONTINUE TO MONITOR.
[2020-06-04 08:07] LABS: AFP, TUMOR MARKER 1.9 ng/mL (0.0-8.3)
[2020-06-04 08:07] LABS: IMMUNOGLOBULIN A, SERUM 275 mg/dL (61-437); IMMUNOGLOBULIN G, SERUM 673 mg/dL (603-1613); IMMUNOGLOBULIN M, SERUM 83 mg/dL (15-143)
[2020-06-04] MEDS: POTASSIUM CL. PREMIX PERIPHER. 50 ML IV SCH ×4 (08:49→12:41)
[2020-06-04] MEDS ORDERED: IOHEXOL-350 100 ML VIAL IV ONE (09:13)
[2020-06-04] MEDS ORDERED: IV NS 0.9% 250 ML IV ONE (09:13)
[2020-06-04] MEDS: CARVEDILOL 6.25 MG TABLET PO SCH ×2 (09:45→17:14)
[2020-06-04] MEDS: APIXABAN 5 MG TABLET PO SCH ×2 (09:46→17:40)
[2020-06-04] MEDS ORDERED: K PHOS NEUTRAL 250 MG TABLET PO ONE (12:30)
[2020-06-04] MEDS ORDERED: APIX5TAB PO (14:19)
[2020-06-04 17:14] VITALS: BP 165/86
--- NOTE | 2020-06-04 17:40 | NUR ---
DISCHARGE NOTES PATIENT VITALS WERE WITHIN NORMAL LIMIT WITH NO SIGNS OF DISTRESS IN ROOM AIR. ALL NEEDS, CARE, TREATMENT AND MEDICATIONS ADMINISTERED ANTICIPATED PER ORDER. DISCHARGE INSTRUCTIONS WERE EDUCATED TO THE PATIENT AND PATIENT DID TEACH BACK. DISCHARGE PAPER WORK WAS SIGNED AND BELONGING LIST WAS SIGNED AND COMPLETED BY PATIENT WELL. PATIENT REFUSED DISCHARGE PHOTOS AND IV WAS REMOVED WITH NO SIGNS OF BLEEDING AND COVERED, PATIENT LEFT TO THE LOBBY VIA WHEELCHAIR ACCOMPANIED BY ALISSA LOU.
[2020-06-04 19:03] LABS: *SPE A/G RATIO 1.1 (0.7-1.7); *SPE ALBUMIN 2.6 g/dL (2.9-4.4); *SPE ALPHA-1-GLOBULIN 0.2 g/dL (0.0-0.4); *SPE ALPHA-2-GLOBULIN 0.7 g/dL (0.4-1.0); *SPE BETA GLOBULIN 0.8 g/dL (0.7-1.3); *SPE GLOBULIN, TOTAL 2.3 g/dL (2.2-3.9); *SPE M-SPIKE Not Observed g/dL (Not Observed); *SPEGAMMA GLOBULIN 0.6 g/dL (0.4-1.8)
== END 2020-06-04 17:45 | disposition home or self-care (01) | DRG 391 ==
LOC: ER 03:15 → MED 08:51
PROVIDERS: ADMIT Nurse Practitioner Acute Care; ATTEND Nurse Practitioner Acute Care
DX: A08.4 Viral intestinal infection, unspecified (principal); N17.0 Acute kidney failure with tubular necrosis; I13.0 Hypertensive heart and chronic kidney disease with heart failure and stage 1 through stage 4 chronic kidney disease, or unspecified chronic kidney disease; E87.2 Acidosis; I50.9 Heart failure, unspecified; K21.9 Gastro-esophageal reflux disease without esophagitis; K29.70 Gastritis, unspecified, without bleeding; I25.10 Atherosclerotic heart disease of native coronary artery without angina pectoris; N18.9 Chronic kidney disease, unspecified; G89.4 Chronic pain syndrome
CPT/HCPCS: 36415; 71045-TC; 71260-TC; 74160-TC; 80048-TC; 80061-TC; 80076-TC; 81001; 82105; 82272-TC; 82378; 82728-TC; 82784; 83540-TC; 83605-TC; 83615-TC; 83690-TC; 83735-TC; 84100-TC; 84153-TC; 84154-TC; 84155; 84165; 84484-TC; 85025-TC; 86301; 86334; 86706; 86803; 87081-TC; 87340; 93307-TC; 97112-TC; 97116-TC; 97530-TC; C9803; G0378; J2270; J3480; J3490; J7030; J7050; Q0177; Q9967

== ENCOUNTER 2020-06-25 14:05 | Emergency (ER) | payer MEDICARE, OTHER ==
[~2020-06-25] VITALS: Ht 170.2 cm; Wt 54.4 kg
[~2020-06-25 14:05] MED LIST changes: +APIX5TAB PO; +DEXL60CA3 PO; -DULO20CA19 PO; +HYDR-3642 PO; -HYOS-28 SL; +NAPR-1009 PO; -PANT40TA2 PO; -SUCR1ORA4 PO
--- NOTE | 2020-06-25 14:30 | NUR ---
bib self C/O LEFT SHOULDER PAIN X1 MONTH. vs checked. stable. manjit sanchez
[2020-06-25] MEDS ORDERED: KETOROLAC TROMETHAMINE 15 MG/ML VIAL ONE (15:04)
[2020-06-25] MEDS ORDERED: diphenhydrAMINE HCL 25 MG CAPSULE ONE (15:05)
[2020-06-25] MEDS: KETOROLAC TROMETHAMINE INJ 60 MG/2 ML VIAL IM ONE (15:13)
[2020-06-25] MEDS: DIPHENHYDRAMINE HCL 12.5 MG/5 ML UDC PO ONE (15:13)
--- NOTE | 2020-06-25 16:22 | NUR ---
Patient discharged to home in stable condition. Written and verbal after care instructions given. Patient verbalizes understanding of instruction.
[2020-06-25 16:23] VITALS: BP 131/77
== END 2020-06-25 16:23 | disposition home or self-care (01) ==
LOC: ER 14:14
DX: M25.512 Pain in left shoulder (principal); G89.29 Other chronic pain; L29.8 Other pruritus; I10 Essential (primary) hypertension; E03.9 Hypothyroidism, unspecified; Z95.0 Presence of cardiac pacemaker; Z96.653 Presence of artificial knee joint, bilateral; Z60.2 Problems related to living alone; Z79.899 Other long term (current) drug therapy
CPT/HCPCS: 96372; 99283; J1885; Q0163